=== PATIENT | female | born 1945 | race Caucasian/White ===

== ENCOUNTER 2017-06-05 17:23 | Inpatient (IN) | payer MEDICARE, OTHER ==
[~2017-06-05] VITALS: Ht 134.6 cm; Wt 45.0 kg
[~2017-06-05 17:23] MED LIST: ACET325T11 PO; CIPR500T4 PO; ESCI10TA PO; FLON0.053; FLUTI220I INH; HYDR-2951 PO; HYDR7.5T32 PO; METR-1 PO; MIRT30TA PO; MONT10TA2 PO; SUCR1TAB PO; VITA-13 PO; XANA0.5T PO
[2017-06-05 17:33] VITALS: BP 159/83; PULSE 84; RESP 19; TEMP 97.4; O2SAT 100
[2017-06-05] MEDS ORDERED: SODIUM CHLORIDE 0.9% FLUSH 10 ML FLUSH IVF PRN (18:00)
--- NOTE | 2017-06-05 18:06 | PD ---
HPI Chief Complaint: Diabetic Time Seen by Provider: 17:27 Travel History International Travel<30 days: No Contact w/Intl Traveler<30days: No Traveled to known affect area: No History of Present Illness HPI 71-year-old female presents to the emergency department Via EMS for evaluation of hypoglycemia. The patient resides occult [facility]. She was at the orthopedist office for routine appointment. In the waiting room, she went unresponsive. When EMS arrived, she was unresponsive with GCS of 3. Her blood sugar was 37. They were able to put some oral glucose on her mucosa and she became responsive. She then took the rest of the glucose orally. She is alert upon her arrival here. Patient states she has decreased appetite today and did not eat much breakfast or lunch after her insulin. She denies any headache. No chest pain. She denies abdominal pain. No vomiting. She states she is now short of breath due to her emphysema. No exacerbating alleviating factors. Moderate severity. PFSH Past Medical History Anxiety: Yes Depression: Yes Heart Rhythm Problems: Yes (ST WITH OCCAS. PAC's) Cancer: No Cardiovascular Problems: Yes (HX OF AORTIC INSUFFICIENCY.) COPD: Yes Developmental Delay: Yes (MR) Diabetes: Yes Diminished Hearing: No Endocrine: Yes GERD: Yes Genitourinary: No Immune Disorder: No Musculoskeletal: No Neurologic: No Psychiatric: Yes (schizophrenia) Reproductive: Yes (tubligation) Respiratory: Yes Schizophrenia: Yes Ulcer: Yes ?: Not Menopausal: Yes Tubal Ligation: Yes Past Surgical History Gynecologic Surgery: Yes (tubligation) Social History Alcohol Use: No Tobacco Use: No Substance Use: No Allergies-Medications (Allergen,Severity, Reaction): Coded Allergies: penicillin G (Unverified Allergy, Severe, 10/02/16) MRI PRECAUTION (Verified Adverse Reaction, Severe, SPINAL STIMULATOR VV 10/12/10, 07/03/11) Reported Meds & Prescriptions Reported Meds & Active Scripts Active Reported Remeron (Mirtazapine) 45 Mg Tab 45 Mg PO HS Tylenol (Acetaminophen) 325 Mg Tab 650 Mg PO Q4H PRN Colace (Docusate Sodium) 100 Mg Capsule 100 Mg PO Q12HR Lovenox Inj (Enoxaparin Sodium) 40 Mg/0.4 Ml Syr 40 Mg SQ DAILY Omeprazole 40 Mg Cap 40 Mg PO BID Breo Ellipta Inh (Fluticasone/Vilanterol) 200-25 Mcg/Act Inh 1 Puff INH DAILY Use daily at the same time. Sodium Polystyrene Sulfonate Liq (Sodium Polystyrene Sulfonate) 15 Gm/60 Ml Susp 15 Gm PO SATURDAY Brimonidine Opth Drops (Brimonidine Tartrate) 0.2% Soln 1 Drop EACH EYE BID Levemir Flextouch Pen Inj (Insulin Detemir) 300 unit/3 ML Pen 20 Units SQ DAILY Seroquel (Quetiapine Fumarate) 200 Mg Tab 200 Mg PO HS Xanax (Alprazolam) 1 Mg Tab 1 Mg PO HS Ferrous Sulfate 325 Mg (65 Mg Iron) Tablet 325 Mg PO DAILY Review of Systems Except as stated in HPI: all other systems reviewed are Neg Physical Exam Narrative GENERAL: Well-nourished, well-developed elderly female patient, afebrile. Patient alert and oriented to person, place, month, but not year or president. SKIN: Focused skin assessment warm/dry. HEAD: Normocephalic. EYES: No scleral icterus. No injection or drainage. NECK: Supple, trachea midline. No JVD or lymphadenopathy. CARDIOVASCULAR: Regular rate and rhythm without murmurs, gallops, or rubs. RESPIRATORY: Breath sounds equal bilaterally. No accessory muscle use. Lungs sounds with the inspiratory and expiratory wheezes throughout. GASTROINTESTINAL: Abdomen soft, non-tender, nondistended. MUSCULOSKELETAL: No cyanosis, or edema. BACK: Nontender without obvious deformity. No CVA tenderness. Data Data Last Documented VS Vital Signs Date Time Temp Pulse Resp B/P (MAP) Pulse Ox O2 Delivery O2 Flow Rate FiO2 06/05/17 20:10 94 18 146/72 (96) 99 Room Air 06/05/17 17:33 97.4 Orders Orders Electrocardiogram (06/05/17 17:47) Complete Blood Count With Diff (06/05/17 17:47) Comprehensive Metabolic Panel (06/05/17 17:47) Magnesium (Mg) (06/05/17 17:47) Ckmb (Isoenzyme) Profile (06/05/17 17:47) Troponin I (06/05/17 17:47) Act Partial Throm Time (Ptt) (06/05/17 17:47) Prothrombin Time / Inr (Pt) (06/05/17 17:47) Urinalysis - C+S If Indicated (06/05/17 17:47) Chest, Single Ap (06/05/17 17:47) Ecg Monitoring (06/05/17 17:47) Iv Access Insert/Monitor (06/05/17 17:47) Oximetry (06/05/17 17:47) Sodium Chloride 0.9% Flush (Ns Flush) (06/05/17 18:00) Diet Heart Healthy (06/05/17 Dinner) Albuterol-Ipratropium Neb (Duoneb Neb) (06/05/17 18:00) Vascular Access Team Consult/P PRN (06/05/17 18:02) Vascular Poc Ultrasound (06/05/17 ) Dextrose 50% In Jonny (Syr) Inj (D50w (Syr (06/05/17 18:15) Blood Glucose (06/05/17 19:06) B-Type Natriuretic Peptide (06/05/17 19:13) Cath For Specimen (06/05/17 20:47) Urine Culture (06/05/17 21:10) Admit Order (Ed Use Only) (06/05/17 22:21) Labs Laboratory Tests Test 06/05/17 18:00 06/05/17 19:15 06/05/17 20:00 06/05/17 21:10 White Blood Count 10.4 TH/MM3 Red Blood Count 4.80 MIL/MM3 Hemoglobin 13.2 GM/DL Hematocrit 40.9 % Mean Corpuscular Volume 85.3 FL Mean Corpuscular Hemoglobin 27.5 PG Mean Corpuscular Hemoglobin Concent 32.3 % Red Cell Distribution Width 16.7 % Platelet Count 312 TH/MM3 Mean Platelet Volume 8.4 FL Neutrophils (%) (Auto) 79.5 % Lymphocytes (%) (Auto) 11.6 % Monocytes (%) (Auto) 5.8 % Eosinophils (%) (Auto) 2.7 % Basophils (%) (Auto) 0.4 % Neutrophils # (Auto) 8.3 TH/MM3 Lymphocytes # (Auto) 1.2 TH/MM3 Monocytes # (Auto) 0.6 TH/MM3 Eosinophils # (Auto) 0.3 TH/MM3 Basophils # (Auto) 0.0 TH/MM3 CBC Comment DIFF FINAL Differential Comment Blood Urea Nitrogen 19 MG/DL Creatinine 0.83 MG/DL Random Glucose 27 MG/DL Total Protein 8.5 GM/DL Albumin 3.3 GM/DL Calcium Level 9.0 MG/DL Magnesium Level 1.7 MG/DL Alkaline Phosphatase 175 U/L Aspartate Amino Transf (AST/SGOT) 22 U/L Alanine Aminotransferase (ALT/SGPT) 14 U/L Total Bilirubin 0.5 MG/DL Sodium Level 140 MEQ/L Potassium Level 3.5 MEQ/L Chloride Level 106 MEQ/L Carbon Dioxide Level 23.8 MEQ/L Anion Gap 10 MEQ/L Estimat Glomerular Filtration Rate 68 ML/MIN Total Creatine Kinase 48 U/L Troponin I 0.33 NG/ML Prothrombin Time 10.5 SEC Prothromb Time International Ratio 1.0 RATIO Activated Partial Thromboplast Time 29.2 SEC Urine Color YELLOW Urine Turbidity CLEAR Urine pH 6.5 Urine Specific [place] 1.018 Urine Protein TRACE mg/dL Urine Glucose (UA) 150 mg/dL Urine Ketones NEG mg/dL Urine Occult Blood NEG Urine Nitrite NEG Urine Bilirubin NEG Urine Urobilinogen 2.0 MG/DL Urine Leukocyte Esterase NEG Urine RBC 1 /hpf Urine WBC 3 /hpf Urine Squamous Epithelial Cells 11 /hpf Urine Bacteria MANY /hpf Microscopic Urinalysis Comment CULTURE INDICATED MDM Medical Decision Making Medical Screen Exam Complete: Yes Emergency Medical Condition: Yes Medical Record Reviewed: Yes Differential Diagnosis Hypoglycemia versus electrolyte abnormality versus UTI Narrative Course 71-year-old female presents to the emergency department for unresponsiveness, hypoglycemia that occurred today. Blood glucose on arrival to the ED is 26. Patient is given orange juice and food. She is given 1 amp of D50. EKG, CBC, CMP, magnesium, CK, troponin, BNP, PTT, PT/INR, UA, chest x-ray are ordered and pending. EKG shows sinus rhythm, heart rate 90, no acute ST changes. CBC shows no acute abnormality. CMP shows hypoglycemia 27. Magnesium is 1.7. CK is 48. Troponin is 0.33. BNP is pending. Cardiac showed no acute abnormality. Blood glucose at 1836 is 203. Blood glucose at 2043 is 176. Patient is admitted for altered mental status, hypoglycemia, elevated troponin. Dr. Velazquez accepted admission. Diagnosis Primary Impression: Altered mental status Qualified Codes: R41.82 - Altered mental status, unspecified Additional Impressions: Hypoglycemia Elevated troponin Admitting Information Admitting Physician Requests: Admit Khalida Morocho Jun 05, 2017 18:06
[2017-06-05] MEDS ORDERED: DEXTROSE 50% IN WATER 50 ML SYRINGE IV PUSH ONE (18:15)
[2017-06-05 18:39] VITALS: BP 160/63; PULSE 98; RESP 19; O2SAT 99
--- NOTE | 2017-06-05 18:41 | RADRPT ---
EXAM DATE/TIME: 06/05/2017 18:16 [place] COMPARISON: No previous studies available for comparison. INDICATIONS : Shortness of breath. MEDICAL HISTORY : Unobtainable. SURGICAL HISTORY : Unobtainable. ENCOUNTER: Initial ACUITY: 2 days PAIN SCORE: Non-responsive. LOCATION: chest FINDINGS: Heart size is borderline. There is mild central vascular congestion. No focal infiltrate or significa nt effusion. CONCLUSION: Borderline heart size mild vascular congestion Garrett Joyce MD on June 05, 2017 at 18:38 Board Certified Radiologist. This report was verified electronically.
[2017-06-05 18:43] LABS: ALBUMIN 3.3 GM/DL (3.4-5.0); ALT (GPT) 14 U/L (10-53); AST (GOT) 22 U/L (15-37); BICARBONATE 23.8 MEQ/L (21.0-32.0); BLOOD UREA NITROGEN 19 MG/DL (7-18); CHLORIDE 106 MEQ/L (98-107); CREATININE 0.83 MG/DL (0.50-1.00); GLOMERULAR FILTRATION RATE 68 ML/MIN (>89); MAGNESIUM 1.7 MG/DL (1.5-2.5); SODIUM (NA) 140 MEQ/L (136-145)
[2017-06-05 18:47] LABS: GLUCOSE,RANDOM 27 MG/DL (74-106)
[2017-06-05] MEDS ORDERED: FERR325T18 PO (18:48)
[2017-06-05] MEDS ORDERED: BRIM0.2S4 EACH EYE (18:48)
[2017-06-05] MEDS ORDERED: FLUT1INH7 INH (18:48)
[2017-06-05] MEDS ORDERED: SERO200T PO (18:48)
[2017-06-05] MEDS ORDERED: INSU1INJ5 SQ (18:48)
[2017-06-05] MEDS ORDERED: REME45TA PO (18:48)
[2017-06-05] MEDS ORDERED: COLA100C5 PO (18:48)
[2017-06-05] MEDS ORDERED: SODI200S PO (18:48)
[2017-06-05] MEDS ORDERED: TYLE325T PO (18:48)
[2017-06-05] MEDS ORDERED: XANA1TAB2 PO (18:48)
[2017-06-05] MEDS ORDERED: OMEP40CA2 PO (18:48)
[2017-06-05] MEDS ORDERED: ENOX40P SQ (18:48)
[2017-06-05 19:01] LABS: ALKALINE PHOSPHATASE 175 U/L (45-117); TOTAL BILIRUBIN ADULT 0.5 MG/DL (0.2-1.0); TOTAL PROTEIN 8.5 GM/DL (6.4-8.2); TROPONIN I 0.33 NG/ML (0.02-0.05)
[2017-06-05] MEDS: RESP: ALBUTEROL 2.5 MG/IPRATROPIUM 0.5 MG NEB (SCH) INH (19:16)
[2017-06-05 19:40] LABS: AUTOMATED NEUTROPHIL # 8.3 TH/MM3 (1.8-7.7); BASOPHIL % 0.4 % (0.0-2.0); EOSINOPHIL # 0.3 TH/MM3 (0-0.4); EOSINOPHIL % 2.7 % (0.0-4.0); HEMATOCRIT 40.9 % (35.0-46.0); HEMOGLOBIN 13.2 GM/DL (11.6-15.3); LYMPH % 11.6 % (9.0-44.0); LYMPHOCYTE # 1.2 TH/MM3 (1.0-4.8); MEAN CELL VOLUME 85.3 FL (80.0-100.0); MEAN CORPUSCULAR HEMOGLOBIN 27.5 PG (27.0-34.0); MEAN CORPUSCULAR HGB CONC 32.3 % (32.0-36.0); MEAN PLATELET VOLUME 8.4 FL (7.0-11.0); MONO % 5.8 % (0.0-8.0); MONOCYTE # 0.6 TH/MM3 (0-0.9); NEUT % 79.5 % (16.0-70.0); PLATELET COUNT 312 TH/MM3 (150-450); RED CELL DISTRIBUTION WIDTH 16.7 % (11.6-17.2); WHITE BLOOD COUNT 10.4 TH/MM3 (4.0-11.0)
[2017-06-05 20:10] VITALS: BP 146/72; PULSE 94; RESP 18; O2SAT 99
[2017-06-05 20:27] LABS: PROTHROMBIN TIME - PATIENT 10.5 SEC (9.8-11.6)
[2017-06-05 21:23] LABS: BACTERIA, URINE MANY /hpf; BILIRUBIN, URINE NEG (NEG); BLOOD, URINE NEG (NEG); GLUCOSE,URINE 150 mg/dL (NEG); KETONE, URINE NEG (NEG); NITRITE,URINE NEG (NEG); PH, URINE 6.5 (5.0-8.5); SQUAMOUS EPITHELIAL CELL URINE 11 /hpf (0-5); URINE COLOR YELLOW (YELLW/STRAW); URINE LEUKOCYTE ESTERASE NEG (NEG)
[2017-06-06] VITALS (20 sets, daily range): BP systolic 102–179; BP diastolic 57–78; PULSE 67–107; RESP 16–19; TEMP 97.8–98.5; O2SAT 96–99
[2017-06-06] MEDS ORDERED: D5-1/2 NS + KCL 20 MEQ INJ 1,000 ML IV SCH (00:16)
[2017-06-06] MEDS ORDERED: RESP: ALBUTEROL 2.5 MG/IPRATROPIUM 0.5 MG NEB (PRN) NEB (00:30)
[2017-06-06] MEDS ORDERED: DEXTROSE 50% IN WATER 50 ML VIAL(D50) IV PUSH PRN (00:30)
[2017-06-06] MEDS ORDERED: HEPARIN SODIUM - SQ 10,000 UNITS/ML VIAL SQ ONE (00:30)
[2017-06-06] MEDS ORDERED: GLUCAGON 1 MG/ML VIAL IM PRN (00:30)
[2017-06-06] MEDS ORDERED: SODIUM CHLORIDE 0.9% FLUSH 10 ML FLUSH IV FLUSH PRN ×2 (00:30→16:15)
[2017-06-06] MEDS ORDERED: MORPHINE SULFATE 4 MG/ML INJ IV PUSH PRN (00:30)
[2017-06-06] MEDS ORDERED: NITROGLYCERIN 0.4 MG SL 25 TABS/BTL SL PRN (00:30)
[2017-06-06 01:04] LABS: TROPONIN I 0.28 NG/ML (0.02-0.05)
[2017-06-06 05:51] LABS: TROPONIN I 0.28 NG/ML (0.02-0.05)
[2017-06-06] MEDS ORDERED: HEPARIN SODIUM - SQ 10,000 UNITS/ML VIAL SQ SCH (08:00)
[2017-06-06] MEDS ORDERED: ASPIRIN 325 MG TAB PO SCH (09:00)
[2017-06-06] MEDS ORDERED: FUROSEMIDE 20 MG/2 ML VIAL IV PUSH SCH (09:00)
[2017-06-06] MEDS: FLUTICASONE 200 MCG/VILANTEROL 25 MCG INHALER INH SCH (09:18)
[2017-06-06] MEDS: BRIMONIDINE TARTRATE 0.2% OPHT SOLN 5 ML BTL EACH EYE SCH ×2 (09:18→21:41)
[2017-06-06] MEDS: PANTOPRAZOLE SOD 40 MG DELAYED RELEASE TAB PO SCH ×2 (09:18→21:36)
[2017-06-06] MEDS: FERROUS SULFATE 325 MG (65 MG ELEMENTAL IRON) TAB PO SCH (09:20)
[2017-06-06] MEDS: SODIUM CHLORIDE 0.9% FLUSH 10 ML FLUSH IV FLUSH SCH ×3 (09:21→21:45)
--- NOTE | 2017-06-06 13:30 | HHI.HP ---
[facility] Armani Escobar MD Admission Diagnosis AMS, elevated troponin, hypoglycemia Diagnoses: Chief Complaint: Altered mental status, hypoglycemia Travel History International Travel<30 Days: No Contact w/Intl Traveler <30 Da: No Traveled to Known Affected Are: No History of Present Illness 71 Y/O female with medical history significant for MR, diabetes, emphysema with hip fracture 2 weeks ago became unresponsive in the Orthopedics office and was found to be hypoglycemic. Mental status improved after after she was given glucose. Workup in the ED revealed elevated troponin. On my evaluation, the patient is awake and alert. She states she has not been eating due to poor appetite. She does take insulin. She did complain of SOB to the ED physician but now states her breathing is at baseline. Review of Systems Except as stated in HPI: all other systems reviewed are Neg ROS Limitations: Poor Historian Constitutional: COMPLAINS OF: Change in appetite, DENIES: Fever, Chills Respiratory: COMPLAINS OF: Shortness of breath Cardiovascular: DENIES: Chest pain Musculoskeletal: COMPLAINS OF: Joint pain Except as stated in HPI: all other systems reviewed are Neg Past Family Social History Past Medical History MR, diabetes, emphysema with hip fracture 2 weeks ago COPD, Depression & Anxiety Past Surgical History Left hip fracture repair. Knee surgery Reported Medications Reported Meds & Active Scripts Active Reported Remeron (Mirtazapine) 45 Mg Tab 45 Mg PO HS Tylenol (Acetaminophen) 325 Mg Tab 650 Mg PO Q4H PRN Colace (Docusate Sodium) 100 Mg Capsule 100 Mg PO Q12HR Lovenox Inj (Enoxaparin Sodium) 40 Mg/0.4 Ml Syr 40 Mg SQ DAILY Omeprazole 40 Mg Cap 40 Mg PO BID Breo Ellipta Inh (Fluticasone/Vilanterol) 200-25 Mcg/Act Inh 1 Puff INH DAILY Use daily at the same time. Sodium Polystyrene Sulfonate Liq (Sodium Polystyrene Sulfonate) 15 Gm/60 Ml Susp 15 Gm PO SATURDAY Brimonidine Opth Drops (Brimonidine Tartrate) 0.2% Soln 1 Drop EACH EYE BID Levemir Flextouch Pen Inj (Insulin Detemir) 300 unit/3 ML Pen 20 Units SQ DAILY Seroquel (Quetiapine Fumarate) 200 Mg Tab 200 Mg PO HS Xanax (Alprazolam) 1 Mg Tab 1 Mg PO HS Ferrous Sulfate 325 Mg (65 Mg Iron) Tablet 325 Mg PO DAILY Allergies: Coded Allergies: penicillin G (Unverified Allergy, Severe, 10/02/16) MRI PRECAUTION (Verified Adverse Reaction, Severe, SPINAL STIMULATOR VV 10/12/10, 07/03/11) Family History Patient could not tell me. Social History No tobacco, alcohol Physical Exam Vital Signs Vital Signs Date Time Temp Pulse Resp B/P (MAP) Pulse Ox O2 Delivery O2 Flow Rate FiO2 06/06/17 11:30 97.9 69 16 102/67 (79) 98 Room Air 06/06/17 09:30 97.9 89 17 152/76 (101) 98 Room Air 06/06/17 09:24 17 06/06/17 07:30 98.1 88 16 150/72 (98) 99 Room Air 06/06/17 07:30 78 17 99 Room Air 06/06/17 06:00 74 16 146/75 (98) 98 Room Air 06/06/17 02:00 98.4 79 16 148/64 (92) 98 Room Air 06/06/17 00:33 99 06/06/17 00:00 84 16 133/58 (83) 99 Room Air 06/05/17 20:10 94 18 146/72 (96) 99 Room Air 06/05/17 18:39 98 19 160/63 (95) 99 Room Air 06/05/17 17:45 Room Air 06/05/17 17:33 97.4 84 19 159/83 (108) 100 Physical Exam GENERAL: Patient appears older than stated age, frail. HEAD: Atraumatic. Normocephalic. No temporal or scalp tenderness. EYES: Pupils equal round and reactive. Extraocular motions intact. No scleral icterus. No injection or drainage. ENT: Nose without bleeding, purulent drainage or septal hematoma. Throat without erythema, tonsillar hypertrophy or exudate. Uvula midline. Airway patent. NECK: Trachea midline. No JVD or lymphadenopathy. Supple, nontender, no meningeal signs. CARDIOVASCULAR: Regular rate and rhythm without murmurs, gallops, or rubs. RESPIRATORY: Diminished breath sounds at the bases, otherwise clear to auscultation. GASTROINTESTINAL: Abdomen soft, non-tender, nondistended. No hepato-splenomegaly , or palpable masses. No guarding. MUSCULOSKELETAL: Extremities without clubbing, cyanosis, or edema. No joint tenderness, effusion, or edema noted. No calf tenderness. Negative Homans sign bilaterally. NEUROLOGICAL: Awake and alert. Cranial nerves II through XII intact. Motor and sensory grossly within normal limits. Five out of 5 muscle strength in all muscle groups. Normal speech. Laboratory Laboratory Tests Test 06/05/17 18:00 06/05/17 19:15 06/05/17 20:00 06/05/17 21:10 White Blood Count 10.4 Red Blood Count 4.80 Hemoglobin 13.2 Hematocrit 40.9 Mean Corpuscular Volume 85.3 Mean Corpuscular Hemoglobin 27.5 Mean Corpuscular Hemoglobin Concent 32.3 Red Cell Distribution Width 16.7 Platelet Count 312 Mean Platelet Volume 8.4 Neutrophils (%) (Auto) 79.5 Lymphocytes (%) (Auto) 11.6 Monocytes (%) (Auto) 5.8 Eosinophils (%) (Auto) 2.7 Basophils (%) (Auto) 0.4 Neutrophils # (Auto) 8.3 Lymphocytes # (Auto) 1.2 Monocytes # (Auto) 0.6 Eosinophils # (Auto) 0.3 Basophils # (Auto) 0.0 CBC Comment DIFF FINAL Differential Comment Blood Urea Nitrogen 19 Creatinine 0.83 Random Glucose 27 Total Protein 8.5 Albumin 3.3 Calcium Level 9.0 Magnesium Level 1.7 Alkaline Phosphatase 175 Aspartate Amino Transf (AST/SGOT) 22 Alanine Aminotransferase (ALT/SGPT) 14 Total Bilirubin 0.5 Sodium Level 140 Potassium Level 3.5 Chloride Level 106 Carbon Dioxide Level 23.8 Anion Gap 10 Estimat Glomerular Filtration Rate 68 Total Creatine Kinase 48 Troponin I 0.33 Prothrombin Time 10.5 Prothromb Time International Ratio 1.0 Activated Partial Thromboplast Time 29.2 B-Type Natriuretic Peptide 70 Urine Color YELLOW Urine Turbidity CLEAR Urine pH 6.5 Urine Specific [place] 1.018 Urine Protein TRACE Urine Glucose (UA) 150 Urine Ketones NEG Urine Occult Blood NEG Urine Nitrite NEG Urine Bilirubin NEG Urine Urobilinogen 2.0 Urine Leukocyte Esterase NEG Urine RBC 1 Urine WBC 3 Urine Squamous Epithelial Cells 11 Urine Bacteria MANY Microscopic Urinalysis Comment CULTURE INDICATED Test 06/06/17 00:25 06/06/17 04:18 Total Creatine Kinase 40 36 Troponin I 0.28 0.28 Date/Time Source Procedure Growth Status 06/05/17 21:10 Urine Random Urine Urine Culture Pending Received Result Diagram: 06/05/17 1800 06/05/17 1800 Imaging Last Impressions Chest X-Ray 06/05/17 1967 Signed Impressions: Service Date/Time: Monday, June 05, 2017 18:16 - CONCLUSION: Borderline heart size mild vascular congestion MD Amina Noble VTE Risk Assessment Amina VTE Risk Assessment: Mod/High Risk (score >= 2) Caprini Risk Assessment Model Point Value = 1 Point Value = 2 Point Value = 3 Point Value = 5 Age 41-60 Minor surgery BMI > 25 kg/m2 Swollen legs Varicose veins or History of unexplained or recurrent spontaneous Oral contraceptives or hormone replacement Sepsis (< 1 month) Serious lung disease, including pneumonia (< 1 month) Abnormal pulmonary function Acute myocardial infarction Congestive heart failure (< 1 month) History of inflammatory bowel disease Medical patient at bed rest Age 61-74 Arthroscopic surgery Major open surgery (> 45 min) Laparoscopic surgery (> 45 min) Malignancy Confined to bed (> 72 hours) Immobilizing plaster cast Central venous access Age >= 75 History of VTE Family history of VTE Factor V Leiden Prothrombin [id number] Lupus anticoagulant Anticardiolipin antibodies Elevated serum homocysteine Heparin-induced thrombocytopenia Other congenital or acquired thrombophilia Stroke (< 1 month) Elective arthroplasty Hip, pelvis, or leg fracture Acute spinal cord injury (< 1 month) Prophylaxis Regimen Total Risk Factor Score Risk Level Prophylaxis Regimen 0-1 Low Early ambulation 2 Moderate Order ONE of the following: *Sequential Compression Device (SCD) *Heparin 5000 units SQ BID 3-4 Higher Order ONE of the following medications: *Heparin 5000 units SQ TID *Enoxaparin/Lovenox 40 mg SQ daily (WT < 150 kg, CrCl > 30 mL/min) *Enoxaparin/Lovenox 30 mg SQ daily (WT < 150 kg, CrCl > 10-29 mL/min) *Enoxaparin/Lovenox 30 mg SQ BID (WT < 150 kg, CrCl > 30 mL/min) AND/OR *Sequential Compression Device (SCD) 5 or more Highest Order ONE of the following medications: *Heparin 5000 units SQ TID (Preferred with Epidurals) *Enoxaparin/Lovenox 40 mg SQ daily (WT < 150 kg, CrCl > 30 mL/min) *Enoxaparin/Lovenox 30 mg SQ daily (WT < 150 kg, CrCl > 10-29 mL/min) *Enoxaparin/Lovenox 30 mg SQ BID (WT < 150 kg, CrCl > 30 mL/min) AND *Sequential Compression Device (SCD) Assessment and Plan Problem List: (1) Altered mental status ICD Code: R41.82 - Altered mental status, unspecified Status: Acute Plan: Secondary to hypoglycemia. Patient's mental status is at baseline. Continue to monitor. Correct hypoglycemia. (2) Elevated troponin ICD Code: R74.8 - Abnormal levels of other serum enzymes Status: Acute Plan: No documented cardiac history. She denies chest pain. She did complain of shortness of breath which has resolved Consult cardiology for elevated troponin. (3) Hypoglycemia ICD Code: E16.2 - Hypoglycemia, unspecified Status: Acute Plan: Secondary to inadequate p.o. intake after taking insulin. Hold Levemir. Encourage patient to eat. Diabetic diet. (4) Status post hip surgery ICD Code: Z98.890 - Other specified postprocedural states Plan: Per patient she had surgery two weeks ago at another hospital. Physical therapy to evaluate Physician Certification 2 Midnight Certification Type: Admission for Inpatient Services Order for Inpatient Services The services are ordered in accordance with Medicare regulations or non- Medicare payer requirements, as applicable. In the case of services not specified as inpatient-only, they are appropriately provided as inpatient services in accordance with the 2-midnight benchmark. Estimated LOS (days): 3 days is the estimated time the patient will need to remain in the hospital, assuming treatment plan goals are met and no additional complications. Post-Hospital Plan: SNF Problem Qualifiers (1) Altered mental status: Qualified Codes: R41.82 - Altered mental status, unspecified Eder Harvey MD Jun 06, 2017 13:30
[2017-06-06] MEDS ORDERED: MIDAZOLAM HCL 2 MG/2 ML VIAL ONE ×2 (14:52→15:31)
[2017-06-06] MEDS ORDERED: LIDOCAINE HCL 1% PF 30 ML VIAL ONE (14:52)
[2017-06-06] MEDS ORDERED: HEPARIN SODIUM - IV 10,000 UNITS/10 ML VIAL ONE ×2 (14:53→15:24)
[2017-06-06] MEDS ORDERED: ADENOSINE STRESS TEST INJ 90 MG/30 ML VIAL ONE (15:44)
--- NOTE | 2017-06-06 15:53 | MB ---
cc: Lan Gomez MD DATE: 06/06/2017 HISTORY OF PRESENT ILLNESS: Minerva is a 71-year-old lady with a history of diabetes, schizophrenia, currently eating lunch, complaining of mild chest pain. She has an elevated troponin. She is somewhat of a poor historian, so obtained a lot of the history from the ER report. She was reportedly brought in by EMS for evaluation of hypoglycemia. She was found to be unresponsive in her orthopedist's waiting room. GCS initially 3, blood sugar 37 responded to oral glucose, was noted to be alert in the emergency room upon arrival. Otherwise, denies any fevers, chills, cough, GI or bleeding, PND, orthopnea, syncope or dizziness. She is actually having chest pain at the bedside, however. PAST MEDICAL HISTORY: Includes anxiety, depression, sinus tachycardia with occasional PACs, aortic insufficiency, COPD, history of mental retardation, endocrine, GERD, schizophrenia. SOCIAL HISTORY: Denies tobacco or alcohol use. ALLERGIES: PENICILLIN G AND MRI PRECAUTION. MEDICATIONS PRIOR TO ADMISSION: 1. Remeron. 2. Tylenol. 3. Colace. 4. Lovenox 40 subcutaneously daily. 5. Omeprazole. 6. Breo Ellipta. 7. Sodium polystyrene. 8. Sulfonate 9. Famotidine. 10. Levemir. 11. Seroquel. 12. Xanax. 13. Ferrous sulfate 325 daily. MEDICATIONS IN THE HOSPITAL: 1. Xanax 1 mg at bedtime. 2. Seroquel. 3. Remeron 4. Aspirin 325 daily. 5. Ferrous sulfate 325 daily. 6. Breo Ellipta. 7. Pantoprazole 40 b.i.d. 8. Heparin 5000 subcutaneous every 8 hours. PHYSICAL EXAMINATION: VITAL SIGNS: Blood pressure 122/65, pulse 86, respiration rate 17, temperature 97.8. Sats 98% on room air. GENERAL: She is lucid and oriented, x 2-3, in no acute distress. NECK: Supple. No JVD. No bruit. CARDIOVASCULAR: S1, S2. No murmurs, rubs, or gallops. LUNGS: Equal breath sounds bilaterally. ABDOMEN: Soft, nontender, nondistended with positive bowel sounds. EXTREMITIES: No extremity edema. X-RAY: Chest x-ray: Borderline heart size, mild vascular congestion. DATA: EKG shows normal sinus rhythm at 90 beats per minute. LABORATORY DATA: White count 10.4, hemoglobin 13.2, hematocrit 40.9, platelet count 312. Sodium 140, potassium 3.5, chloride 106, bicarbonate 23.8, BUN 19, creatinine 0.83, glucose 27, AST 22, ALT 14. Troponin 0.33, followed by 0.28 and 0.28. BNP is 70. Albumin 3.3. INR is 1.0 DIAGNOSES: 1. Rke-WI-tydnuxqat myocardial infarction. 2. 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 3. Diabetes mellitus. 4. Hypoglycemia. 5. Schizophrenia. 6. Mental retardation. 7. Hypoglycemia. DISCUSSION: The patient I do not think is mentally competent to sign consent. However, she has an emergent indication for cardiac catheterization given her ongoing chest pain with elevated troponin and multiple cardiac risk factors. Therefore, I do think left heart catheterization is emergently indicated. I have tried my best to explain the procedure to the patient. She is easily startled by discussing the risks and benefits which include , CVA, myocardial infarction, need for bypass surgery, surgery, dialysis, blood transfusion, bleeding, infection, anaphylaxis and arrhythmia. Further recommendations based on the details of her cardiac catheterization. MD PERFECTO Rodriguez/LAURENCE , 03:27 PM , 03:53 PM
--- NOTE | 2017-06-06 16:10 | CATHPROC ---
KitOrder HIS Report Study Information Study Number Admission Scheduled Start Study Start [id number] Jun 05 2017 10:23PM 06/06/2017 Jun 06 2017 3:04PM [place] [facility] Cardiac Catheterization Admit Source Facility Department Emergency department [facility] Physician and Clinical Staff Initial Lan Romero Animal Keeper Head Pavan Kelly RN Animal Keeper Head Abdi JARQUIN, Joel RecordHortencia Santiago,RT(R) (BS) Scrub Romaine Ragland RCIS(BS) Procedures Performed Procedure Location (Site) Vessel Name Coronary Angiograms LCA Left Coronary Coronary Angiograms RCA Right Coronary L Heart Cath LV Gram-hand inj. LV LV Ventricle Wire insertion Fem Art (right) Femoral Art Equipment Time Wet Finisher Description Size Mfg Part Number Used/Scraped TRANSDUCER, SARAH [id number] 15:07 MEDINA RICO * Used W/STOCKCOCK *[id number] *[id number] *[id number] *[id number] 15:07 MEDLINE INDUSTRIES PACK, CCL CUSTOM * Used *[id number] 15:07 [employer] [place] PACER PEN, SKIN DUAL W/ RULER * Used *[id number] 15:07 YEOXIN VMall MEDICAL WIRE, 3MMJ .035 180CM 180CM Used *[id number] 15:07 NAMIC MANIFOLD, 4 PORT * Used *[id number] 15:07 NYCOMED OMNIPAQUE, 350 MG, 150ML 150ML [id number] Used [id number] 15:07 BEAL MEDICAL BLANKET,WARM AIR CCL * Used *[id number] 15:07 TERUMO MEDICAL SHEATH, FR4 TERUMO (10CM) FR 4 Used *[id number] 15:41 TERUMO MEDICAL SHEATH, FR6 TERUMO (10CM) FR 6 Used *[id number] 15:40 [place] PRIME WIRE, VERRATA 185CM 185CM [id number] *[id number] Used Equipment Model, Serial, Lot Number and Expiration Data Description Model Number Serial Number Lot Number Expiration Date PRIME WIRE, VERRATA 185CM 7128 [id number] 05-18-2020 History: Current Medications Medication Dosage/Unit Route Frequency Last Date/Time Taken ASA History: Allergies Allergy Reaction penicillin G MRI PRECAUTION SPINAL STIMULATOR VV 10/12/10 History: Risk Factors Family History of Hypertension Dyslipidemia Previous NV Previous Heart Failure Premature CAD Yes No No No No Prior Valve Prior PCI Prior CABG Surgery No No No Cerebrovascular Peripheral Artery Chronic Lung On Dialysis Diabetes Diabetes Therapy Disease Disease Disease No No No Yes Yes Insulin History: Symptoms/Diagnosis Selection Items Chest pain History: Stress Tests Stress or Imaging Studies Performed No History: Other Current Smoker Method Quit Packs a Day Years Used Pack Years No Cigarettes 15 Years Ago 2 20 40 Labs Hgb (g/dl) Hct (%) WBC (l/cumm) Platelets (thousands) 11.60-17.00 35.00-51.00 4.00-11.00 150.00-450.00 13.2 40.9 10.4 312 Glucose (mg/dl) BUN (mg/dl) Creatinine (mg/dl) BUN:Creatinine (1:x) 74.00-106.00 7.00-18.00 0.50-1.30 10.00-20.00 135 19 0.8 23.8 Na (meq/l) K (meq/l) 136.00-145.00 3.50-5.10 140 3.5 INR (PTT:PT) 0.90-1.10 1 Troponin I (ng/ml) CPK (u/l) CPK-MB (ng/ML) 0.02-0.05 26.00-308.00 0.50-3.60 0.28 48 Not Drawn Medication Medication Total Dose (Bolus/Oral) Medication Total Dosage/Unit 1% XYLOCAINE 20 mL FENTANYL 37.5 mcg HEPARIN 3000 units VERSED 3 mg Medications (Bolus/Oral) Medication Time Given Dosage/Unit Administered By Reason VERSED 06/06/2017 3:21:17 PM 1 mg Joel Patton RN 1 mg VERSED given in lab by Joel Patton RN in Right Antecubital via Peripheral IV. VERSED 06/06/2017 3:28:33 PM 1 mg Joel Patotn RN 1 mg VERSED given in lab by Joel Patton RN in Right Antecubital via Peripheral IV. 1% XYLOCAINE 06/06/2017 3:31:57 PM 20 mL Lan Gomez 20 mL 1% XYLOCAINE given in lab by Lan Gomez in Right Groin via Subcutaneous. VERSED 06/06/2017 3:32:53 PM 1 mg Joel Patton RN 1 mg VERSED given in lab by Joel Patton RN in Right Antecubital via Peripheral IV. FENTANYL 06/06/2017 3:33:56 PM 12.5 mcg Joel Patton RN 12.5 mcg FENTANYL given in lab by Joel Patton RN in Right Antecubital via Peripheral IV. FENTANYL 06/06/2017 3:40:55 PM 12.5 mcg Joel Patton RN 12.5 mcg FENTANYL given in lab by Joel Patton RN in Right Antecubital via Peripheral IV. HEPARIN 06/06/2017 3:42:29 PM 3000 units Joel Patton RN 3000 units HEPARIN given in lab by Joel Patton RN in Right Antecubital via Peripheral IV. FENTANYL 06/06/2017 3:56:45 PM 12.5 mcg Joel Patton RN 12.5 mcg FENTANYL given in lab by Joel Patton RN in Right Antecubital via Peripheral IV. Medication (Drip) Medication Time Given Dosage/Unit Concentration/Unit Diluent (ml) Solutio n ADENOSINE DRIP 06/06/2017 3:51:01 PM 140 mcg/kg/min 90 mg 90 NaCl .9 140 mcg/kg/min ADENOSINE DRIP given in lab by Joel Patton RN via Peripheral IV. Pump/Drip Flow = 420 ml/hr using NaCl .9 with a concentration of 90 mg in 90 ml. ADENOSINE DRIP 06/06/2017 3:53:58 PM 0 units/hr 0 D5W STOPPED 0 units/hr ADENOSINE DRIP STOPPED given in lab by Joel Patton RN. Pump/Drip Flow = 0 ml/hr using D5W . IV Solutions 06/06/2017 3:04:44 PM 0 mL (IV) 500 NaCl .9 Patient arrived on IV Solutions in Right Antecubital via Peripheral IV. Pump/Drip Flow = 30 ml/hr usi ng NaCl .9. Initial Case Assessment Cardiovascular HR Rhythm NIBP Chest Pain 83 reg 161/94 3 Edema Present Skin color Skin None Normal Warm Dry Circulatory - Right Pulses Dorsalis Pedis Femoral 2 2 Scale (0,1,2,3,4,d) Circulatory - Left Pulses Dorsalis Pedis Femoral 2 2 Scale (0,1,2,3,4,d) Circulatory - Lower Extremities Color Lower Right Color Lower Left Normal Normal Neurological State Oriented to time-place- Alert Moves all extremities person Respiration - General Respiration Rate SpO2 (%) (B/min) 20 97 Chronological Log Time Study Chronological Log 14:56:15 Patient arrived via Bed. 14:56:23 Patient Name, D.O.B, / Armband Verified By R.N. Vitals capture started with the following parameters, Patient=Adult, Interval=5 min, Initial Pr kwnacq=828 mmHg, 15:04:12 Deflation Rate=5 mmHg, Cuff placed on Right Ankle 15:04:27 Consent signed by the physician and the patient and verified by the [facility] staff. 15:04:31 Pre-op and post- op instructions given; patient acknowledges understanding of instructions. 15:04:32 Verbal Stimulation=2 Physical Stimulation=2 Airway=2 Respiration=2 TOTAL=8. (0=absent, 1=li mited, 2=present) 15:04:34 Presedation assessment performed by [facility] RN. 15:04:40 Patient Warmer Placed on the Table. 15:04:42 Raphael Prominences Protected 15:04:43 A # 20 IV was noted in the Antecubital (right). Grade = 0 15:04:44 Patient arrived on IV Solutions in Right Antecubital via Peripheral IV. Pump/Drip Flow = 30 ml/hr using NaCl .9. 15:04:45 History and physical on the chart or being dictated. Assessment: Initial Case, HR=83 BPM, Rhythm=reg, ZYNJ=623/94 mmhg, Chest Pain=3, Edema=None, Co ari=Normal, Skin = Warm, Dry Right Pulses: Byron Ped=2, Femoral=2 Left Pulses: Byron Ped=2, Femoral=2 15:04:46 Lower Right Extremities: Color=Normal Lower Left Extremities: Color=Normal Neurological: State=Alert, Ox3, DIEZ Respiration: Resp=20 B/min, SpO2=97 % 15:04:59 Skin Breakdown steri strips over incision site on left hip. 15:06:10 HR=93 bpm, DEKW=023/94 mmhg, SpO2=96.0 %, Resp=27 B/min, Pain=3, Shannon=10, Marshall=2 15:10:32 HR=84 bpm, UDNB=944/87 mmhg, SpO2=96.0 %, Resp=17 B/min, Pain=3, Shannon=10, Marshall=2 15:13:22 Bilateral groins prepped with 2% chlorhexidine, and draped after a 3 minute waiting time. 15:15:02 HR=91 bpm, MZWM=881/84 mmhg, SpO2=91.0 %, Resp=18 B/min, Pain=3, Shannon=10, Marshall=2 15:15:54 Reference ECG taken 15:16:20 MD paged 15:16:35 MD responded 15:18:28 Pressure channel 1 zeroed. 15:18:48 MD arrived 15:19:59 HR=82 bpm, BQBD=720/96 mmhg, SpO2=96.0 %, Resp=21 B/min, Pain=3, Shannon=10, Marshall=2 15:21:17 1 mg VERSED given in lab by Joel Patton RN in Right Antecubital via Peripheral IV. 15:24:58 HR=93 bpm, RJIQ=815/79 mmhg, SpO2=93.0 %, Resp=24 B/min, Pain=3, Shannon=10, Marshall=2 15:28:33 1 mg VERSED given in lab by Joel Patton RN in Right Antecubital via Peripheral IV. Time Out. Correct patient, correct procedure, correct physician, power injector not loaded with contrast with surgical 15:29:05 team present. Time Out Concurred by MD and individual staff in procedure. 15:29:11 Case Start 15:29:57 HR=91 bpm, JXQC=890/73 mmhg, SpO2=93.0 %, Resp=20 B/min, Pain=3, Shannon=10, Marshall=2 15:31:57 20 mL 1% XYLOCAINE given in lab by Lan Gomez in Right Groin via Subcutaneous. 15:32:53 1 mg VERSED given in lab by Joel Patton RN in Right Antecubital via Peripheral IV. 15:33:24 Access site was Right Femoral Artery. 15:33:31 A SHEATH, FR4 TERUMO (10CM) FR 4 was advanced into the Fem Art (right) using the Percutaneo us technique. 15:33:56 12.5 mcg FENTANYL given in lab by Joel Patton RN in Right Antecubital via Peripheral IV. A JR 4.0 INFINITI CATHETER FR 4 was advanced over a wire. OMNIPAQUE, 350 MG, 150ML 150ML was us ed for 15:34:02 injections. Recorded Pressure: LV, HR=90, Condition=Condition 1 15:34:48 (Left Ventricle) LV 139/-15/11 15:34:55 The LV was manually injected with 8 cc's and visualized. OMNIPAQUE, 350 MG, 150ML 150ML use d. 15:35:00 HR=84 bpm, BNWZ=966/54 mmhg, SpO2=93.0 %, Resp=30 B/min, Pain=3, Shannon=10, Marshall=2 Recorded Pressure: LV, Ao, HR=91, Condition=Condition 1 15:35:08 (Left Ventricle) LV 118/13/13, (Aorta) Ao 130/55/94 15:35:36 The RCA was injected and visualized at various angles. OMNIPAQUE, 350 MG, 150ML 150ML used . 15:35:50 Catheter was removed A JL 4.0 INFINITI CATHETER FR 4 was advanced over a wire. OMNIPAQUE, 350 MG, 150ML 150ML was us ed for 15:35:53 injections. 15:37:13 The LCA was injected and visualized at various angles. OMNIPAQUE, 350 MG, 150ML 150ML used . 15:39:59 HR=92 bpm, BHZE=134/67 mmhg, SpO2=92.0 %, Resp=16 B/min, Pain=3, Shannon=10, Marshall=2 A SHEATH, FR6 TERUMO (10CM) FR 6 was exchanged in the Fem Art (right). This was necessary in or kapil to 15:40:33 accomodate a larger catheter. 15:40:55 12.5 mcg FENTANYL given in lab by Joel Patton RN in Right Antecubital via Peripheral IV. 15:42:29 3000 units HEPARIN given in lab by Joel Patton RN in Right Antecubital via Peripheral IV. A JR 4.0 GUIDE CATHETER FR 6 was advanced over a wire. OMNIPAQUE, 350 MG, 150ML 150ML was used for 15:43:10 injections. 15:44:56 HR=90 bpm, HDGN=251/66 mmhg, SpO2=94.0 %, Resp=27 B/min, Pain=3, Shannon=10, Marshall=2 15:45:56 A PRIME WIRE, VERRATA 185CM 185CM was inserted via Fem Art (right). 15:48:23 Flow Wire was was placed in the RCA Mid. The FFR measures 0.85 percent. The IFR measures 0. 94 Percent. 15:49:35 Activated Clotting Time Drawn 15:49:57 HR=90 bpm, OHPX=482/69 mmhg, SpO2=99 %, Resp=21 B/min, Pain=3, Shannon=10, Marshall=2 140 mcg/kg/min ADENOSINE DRIP given in lab by Joel Patton RN via Peripheral IV. Pump/Drip Flow = 420 ml/hr using 15:51:01 NaCl .9 with a concentration of 90 mg in 90 ml. 15:53:58 0 units/hr ADENOSINE DRIP STOPPED given in lab by Joel Patton RN. Pump/Drip Flow = 0 ml/hr using D5W. 15:54:12 ACT (Normal Range 90-180) = 233 15:54:42 Wire removed 15:54:49 Catheter was removed 15:54:52 Case End 15:55:03 HR=95 bpm, TQVP=719/57 mmhg, SpO2=95 %, Resp=21 B/min, Pain=3, Shannon=10, Marshall=2 15:56:41 [facility] called. Spoke to Dia. Advised a-line needed. 15:56:45 12.5 mcg FENTANYL given in lab by Joel Patton RN in Right Antecubital via Peripheral IV. 15:57:25 Catheter(s) removed without difficulty 15:58:28 In the Fem Art (right) the SHEATH, FR6 TERUMO (10CM) FR [address] by Ghulam Ragland RCIS(BS). 15:58:41 No case complications noted. 15:58:46 Bedside Report will be given. 15:58:49 A Left Heart Cath was performed. 16:00:02 HR=85 bpm, UHHT=431/77 mmhg, SpO2=94.0 %, Resp=24 B/min, Pain=3, Shannon=10, Marshall=2 16:04:42 Vitals capture stopped. 16:10:17 [facility] Study - Contrast Media Used In Study Contrast Total Opened (mL) Total Used (mL) Total Wasted (mL) Omnipaque 30 30 0 End Study - Maximum Contrast Load Max Contrast Load (mL) 312.5 End Study - Radiation Exposure Fluoro Time (minutes) 2.0 End Study - Patient Disposition Complications Transferred To Interventional Outcome No Telemetry Bed No attempt made
[2017-06-06] MEDS ORDERED: MISC INFORMATION XX ONE (16:15)
--- NOTE | 2017-06-06 16:27 | EKG ---
Date Performed: 06/05/2017 Time Performed: 18:19:21 PTAGE: 71 years EKG: Sinus rhythm When compared to previous tracing, bigeminal premature atrial Contractions have resolved. NORMAL ECG PREVIOUS TRACING : 07/03/2011 22.44 DOCTOR: Andre Alatorre Interpretating Date/Time 06/06/2017 16:25:54
--- NOTE | 2017-06-06 16:27 | EKG ---
Date Performed: 06/06/2017 Time Performed: 00:26:19 PTAGE: 71 years EKG: Sinus rhythm WITH SINUS ARRHYTHMIA Significant baseline artifact. Most likely no significant change from previous tracing. NORMAL ECG PREVIOUS TRACING : 06/05/2017 18.19 DOCTOR: Andre Alatorre Interpretating Date/Time 06/06/2017 16:26:43
--- NOTE | 2017-06-06 16:28 | EKG ---
Date Performed: 06/06/2017 Time Performed: 07:46:19 PTAGE: 71 years EKG: Sinus rhythm WITH MARKED SINUS ARRHYTHMIA Since previous tracing, no significant change noted BORDERLINE ECG PREVIOUS TRACING : 06/06/2017 00.26 DOCTOR: Andre Alatorre Interpretating Date/Time 06/06/2017 16:26:53
--- NOTE | 2017-06-06 16:40 | MA ---
cc: Lan Gomez MD DATE: 06/06/2017 PROCEDURE: 1. Left heart catheterization. 2. Left ventricular. 3. Coronary angiography. 4. FFR of the proximal mid-right coronary artery. INDICATION: Non-STEMI, [place] Cardiovascular Society class IV angina. Active chest pain at rest in the emergency room, ongoing chest pain. Coronary artery disease, diabetes mellitus and multiple cardiac risk factors. PROCEDURE: The patient was brought to the Cardiac Catheterization Laboratory, prepped and draped in the usual sterile fashion. 10 mL of 1% lidocaine was used to locally anesthetize the right common femoral. A 4-Colombian sheath placed in right common femoral artery. 4-Colombian JL4 and JR4 catheter were used to perform left and right coronary angiography and left ventriculography. FINDINGS: The LV pressure is 140/10-12. EF of 65-70%. The right coronary artery is dominant, has a long 50-60% stenosis in the proximal mid-segment, reference vessel diameter probably 4 mm in diameter. Right EZIO and PDA have no significant obstructive disease. Right PDA has a reference vessel diameter of 3 mm. The right EZIO has a reference vessel diameter of 2.5 mm. The left main coronary artery has no significant disease angiographically. The left circumflex vessel has no significant disease angiographically. First obtuse marginal vessel comes off the mid-AV groove left circumflex. It is a medium to large-sized vessel with ostial proximal bifurcation. The medial branch is a small vessel, 1.5 mm reference vessel diameter with no significant obstructive disease. The more lateral of the 2 branches is a larger vessel, probably a 3.0 reference vessel diameter with no significant obstructive disease. The remainder of the AV groove left circumflex vessel is a small 0.5 mm vessel with no obvious focal stenosis. The left anterior descending coronary artery is a non-transapical vessel, proximal reference vessel diameter probably 4 mm in diameter. There is a somewhat anomalous-appearing diagonal vessel, which actually looks like it has a medial takeoff. It may be a variant septal branch. Nevertheless, it has no significant obstructive disease. It bifurcates proximal ostial proximally. The first diagonal artery is a small 0.5 mm vessel with no significant disease angiographically. The second diagonal artery is a medium-sized vessel; no significant disease angiographically. FFR: A 6-Colombian sheath was exchanged for the 4-Colombian sheath. 60 units/kg of heparin was given with an ACT of 223. A 6-Colombian JR4 guide, 0.014 [place] pressure wire was placed into the proximal LAD pressure. The introducer was removed. The guide catheter was thoroughly flushed with 20 mL of normal saline and pressure waveforms were normalized. I then advanced the [place] 0.014 pressure wire into the distal right coronary artery. IFR was 0.96. We did a 3-minute infusion of 140 mcg/kg/minute of adenosine. FFR 0.90. The patient appeared to be sleeping during the entire adenosine infusion, did not appear to be having any symptoms. CONCLUSION: 1. Cpb-SG-mslavgmzr myocardial infarction suspected during her syncopal event. She might have been hypotensive and that is the etiology of her troponin elevation. 2. A 60% proximal mid-right coronary artery stenosis with an IFR 0.96, FFR 0.90 therefore percutaneous coronary intervention deferred. 3. Hyperdynamic left ventricular systolic function, ejection fraction 65 to 70%. RECOMMENDATIONS: 1. Recommend medical management of coronary artery disease, cardiac risk factor modification. Recommend treatment of lipids to NCEP guideline levels, which would be an LDL less than 70 as long as there are no clinical contraindications. I also recommend aspirin 81 mg daily. The patient tolerated the procedure well. MD PERFECTO Rodriguez/LAURENCE , 04:04 PM , 04:39 PM
[2017-06-06] MEDS ORDERED: ATROPINE SULFATE 1 MG/10 ML SYRINGE ONE (17:39)
[2017-06-06] MEDS ORDERED: IOHEXOL 350 MG/ML 50 ML BTL (for Cath Lab) OTHER ONE (18:13)
[2017-06-06] MEDS ORDERED: NITROGLYCERIN 2% OINT 1 GM PACKET TOPICAL PRN (19:15)
[2017-06-06] MEDS: QUEtiapine FUMARATE 200 MG TAB PO SCH (21:36)
[2017-06-06] MEDS: MIRTAZAPINE 15 MG TAB PO SCH (21:37)
[2017-06-06] MEDS: ALPRAZolam 1 MG TAB PO SCH (21:37)
[2017-06-06] MEDS: ACETAMINOPHEN 500 MG CPLT PO PRN (23:14)
[2017-06-07] VITALS (24 sets, daily range): BP systolic 118–169; BP diastolic 63–85; PULSE 60–96; RESP 16–20; TEMP 97.7–98.9; O2SAT 95–100
[2017-06-07 07:02] LABS: CALCIUM 8.7 MG/DL (8.5-10.1); CREATININE 0.93 MG/DL (0.50-1.00)
[2017-06-07 07:03] LABS: CHOLESTEROL/ HDL RATIO 2.57 RATIO; HDL CHOLESTEROL 60.1 MG/DL (40.0-60.0)
[2017-06-07 07:20] LABS: HEMOGLOBIN 9.8 GM/DL (11.6-15.3); MEAN CELL VOLUME 85.2 FL (80.0-100.0); MEAN CORPUSCULAR HEMOGLOBIN 29.8 PG (27.0-34.0); MEAN CORPUSCULAR HGB CONC 34.9 % (32.0-36.0); MEAN PLATELET VOLUME 8.3 FL (7.0-11.0); PLATELET COUNT 375 TH/MM3 (150-450); RED BLOOD COUNT 3.29 MIL/MM3 (4.00-5.30); RED CELL DISTRIBUTION WIDTH 16.4 % (11.6-17.2); WHITE BLOOD COUNT 7.8 TH/MM3 (4.0-11.0)
[2017-06-07 07:45] LABS: BANDS 2 % (0-6); BASOPHILS 2 % (0-2); LYMPHOCYTES 23 % (9-44); METAMYELOCYTES 1 % (0-1); MONOCYTES 8 % (0-8); NEUTROPHIL # MANUAL DIFF 3.7 TH/MM3 (1.8-7.7); POLYS (SEG NEUTROPHILS) 45 % (16-70)
[2017-06-07] MEDS ORDERED: ATORVASTATIN 10 MG TAB PO ONE (09:00)
[2017-06-07] MEDS ORDERED: ASPIRIN EC 81 MG TABEC PO ONE (09:00)
[2017-06-07] MEDS ORDERED: cloNIDine HCL 0.1 MG TAB PO PRN (09:00)
[2017-06-07] MEDS ORDERED: CARVEDILOL 3.125 MG TAB PO ONE (09:00)
[2017-06-07] MEDS ORDERED: RAMIPRIL 2.5 MG CAP PO ONE (09:00)
[2017-06-07] MEDS ORDERED: ASPIRIN 81 MG CHEW TAB PO SCH (09:00)
[2017-06-07] MEDS ORDERED: DEXTROSE 50% IN WATER 50 ML VIAL(D50) IV PUSH PRN (09:15)
[2017-06-07] MEDS ORDERED: GLUCAGON 1 MG/ML VIAL OTHER PRN (09:15)
[2017-06-07] MEDS: PANTOPRAZOLE SOD 40 MG DELAYED RELEASE TAB PO SCH ×2 (10:01→21:18)
[2017-06-07] MEDS: FERROUS SULFATE 325 MG (65 MG ELEMENTAL IRON) TAB PO SCH (10:01)
[2017-06-07] MEDS: SODIUM CHLORIDE 0.9% FLUSH 10 ML FLUSH IV FLUSH SCH ×2 (10:03→21:21)
[2017-06-07] MEDS: BRIMONIDINE TARTRATE 0.2% OPHT SOLN 5 ML BTL EACH EYE SCH ×2 (10:03→21:14)
[2017-06-07] MEDS: FLUTICASONE 200 MCG/VILANTEROL 25 MCG INHALER INH SCH (10:04)
[2017-06-07] MEDS: cefTRIAXone INJ 1,000 MG in SODIUM CHLORIDE 0.9% INJ 100 ML IV SCH (10:58)
[2017-06-07] MEDS: ACETAMINOPHEN 500 MG CPLT PO PRN ×2 (10:58→16:50)
[2017-06-07] MEDS: DRONABINOL 2.5 MG CAP PO SCH ×2 (11:00→16:50)
--- NOTE | 2017-06-07 13:48 | PD.CARD.PN ---
Subjective Subjective Remarks alert in nad Objective Medications Current Medications Medications (Trade) Dose Ordered Sig/Rosa Route Start Time Stop Time Status Last Admin (NS Flush) 2 ml UNSCH PRN IVF 06/05/17 18:00 06/05/17 18:35 (Nitrostat Sl) 0.4 mg Q5M PRN SL 06/06/17 00:30 (Tylenol) 500 mg Q4H PRN PO 06/06/17 00:30 06/07/17 10:58 (Morphine Inj) 2 mg Q3H PRN IV PUSH 06/06/17 00:30 06/06/17 09:19 (Duoneb Neb) 1 ampule Q4HR NEB PRN NEB 06/06/17 00:30 (Xanax) 1 mg HS PO 06/06/17 21:00 06/06/17 21:37 (Alphagan 0.2% Opth Soln) 1 drop BID EACH EYE 06/06/17 09:00 06/07/17 10:03 (Ferrous Sulfate) 325 mg DAILY PO 06/06/17 09:00 06/07/17 10:01 (Breo Ellipta 200-25 Inh) 1 puff DAILY INH 06/06/17 09:00 06/07/17 10:04 (SEROquel) 200 mg HS PO 06/06/17 21:00 06/06/17 21:36 (Remeron) 45 mg HS PO 06/06/17 21:00 06/06/17 21:37 (Protonix) 40 mg BID PO 06/06/17 09:00 06/07/17 10:01 (NS Flush) 2 ml UNSCH PRN IV FLUSH 06/06/17 16:15 (NS Flush) 2 ml BID IV FLUSH 06/06/17 21:00 06/07/17 10:03 (Nitroglycerin 2% Oint) 2 inch ONCE PRN TOPICAL 06/06/17 19:15 06/07/17 23:59 06/06/17 22:37 (Lipitor) 10 mg HS PO 06/08/17 21:00 (Coreg) 3.125 mg Q12HR PO 06/07/17 21:00 (Altace) 2.5 mg DAILY PO 06/08/17 09:00 Ceftriaxone Sodium 1000 mg/ Sodium Chloride 100 ml @ 200 mls/hr Q24H IV 06/07/17 10:00 06/07/17 10:58 (Catapres) 0.1 mg Q6H PRN PO 06/07/17 09:00 (Marinol) 2.5 mg BID@11,16 PO 06/07/17 11:00 (D50w (Vial) Inj) 50 ml UNSCH PRN IV PUSH 06/07/17 09:15 (Glucagon Inj) 1 mg UNSCH PRN OTHER 06/07/17 09:15 Vital Signs / I&O Vital Signs Date Time Temp Pulse Resp B/P (MAP) Pulse Ox O2 Delivery O2 Flow Rate FiO2 06/07/17 12:30 62 18 118/63 (81) 98 06/07/17 08:00 78 06/07/17 08:00 97.7 86 16 169/85 (113) 95 06/07/17 07:00 76 06/07/17 06:25 60 06/07/17 05:01 91 06/07/17 04:00 74 06/07/17 03:39 97.7 95 17 136/73 (94) 98 06/07/17 03:00 78 06/07/17 02:00 84 06/07/17 01:00 84 06/07/17 00:30 18 06/07/17 00:29 98 21 06/07/17 00:00 96 06/06/17 23:08 98.2 102 19 107/57 (74) 96 06/06/17 23:00 107 06/06/17 22:30 96 19 179/69 (105) 97 06/06/17 22:00 99 06/06/17 21:00 82 06/06/17 20:00 79 06/06/17 19:11 98.5 83 18 154/78 (103) 96 06/06/17 19:00 82 06/06/17 18:00 84 06/06/17 17:30 70 06/06/17 17:30 98.1 75 18 143/67 (92) 97 06/06/17 17:00 70 06/06/17 14:51 97.8 86 17 122/65 (84) 98 06/06/17 14:10 97.8 67 17 122/58 (79) 98 Room Air I/O 4/19/18 4/06/06/17 06/07/17 06/07/17 06/07/17 06:59 14:59 22:59 06:59 14:59 22:59 Intake Total 400 ml 50 ml 200 ml Output Total 1550 ml 50 ml 200 ml Balance -1150 ml 0 ml 0 ml Intake Oral 400 ml 50 ml 200 ml Output Urine Total 1550 ml 50 ml 200 ml # Voids 3 1 # Bowel Movements 1 1 Physical Exam GENERAL: SKIN: Warm and dry. HEAD: Normocephalic. EYES: No scleral icterus. No injection or drainage. NECK: Supple, trachea midline. No JVD or lymphadenopathy. CARDIOVASCULAR: Regular rate and rhythm without murmurs, gallops, or rubs. RESPIRATORY: Breath sounds equal bilaterally. No accessory muscle use. GASTROINTESTINAL: Abdomen soft, non-tender, nondistended. MUSCULOSKELETAL: No cyanosis, or edema. BACK: Nontender without obvious deformity. No CVA tenderness. Laboratory Laboratory Tests Test 06/06/17 14:28 06/07/17 05:13 White Blood Count 7.8 TH/MM3 Red Blood Count 3.29 MIL/MM3 Hemoglobin 9.8 GM/DL Hematocrit 28.0 % Mean Corpuscular Volume 85.2 FL Mean Corpuscular Hemoglobin 29.8 PG Mean Corpuscular Hemoglobin Concent 34.9 % Red Cell Distribution Width 16.4 % Platelet Count 375 TH/MM3 Mean Platelet Volume 8.3 FL CBC Comment AUTO DIFF Differential Total Cells Counted 100 Neutrophils % (Manual) 45 % Band Neutrophils % 2 % Lymphocytes % 23 % Monocytes % 8 % Eosinophils % 19 % Basophils % 2 % Neutrophils # (Manual) 3.7 TH/MM3 Metamyelocytes 1 % Differential Comment FINAL DIFF MANUAL Platelet Estimate NORMAL Platelet Morphology Comment CLUMPED Blood Urea Nitrogen 18 MG/DL Creatinine 0.93 MG/DL Random Glucose 94 MG/DL Calcium Level 8.7 MG/DL Sodium Level 140 MEQ/L Potassium Level 4.5 MEQ/L Chloride Level 107 MEQ/L Carbon Dioxide Level 26.0 MEQ/L Anion Gap 7 MEQ/L Estimat Glomerular Filtration Rate 60 ML/MIN Total Creatine Kinase 38 U/L Triglycerides Level 110 MG/DL Cholesterol Level 155 MG/DL LDL Cholesterol 73 MG/DL HDL Cholesterol 60.1 MG/DL Cholesterol/HDL Ratio 2.57 RATIO Assessment and Plan Problem List: (1) CAD (coronary artery disease) ICD Codes: I25.10 - Atherosclerotic heart disease of [place] coronary artery without angina pectoris (2) NSTEMI (non-ST elevated myocardial infarction) ICD Codes: I21.4 - Non-ST elevation (NSTEMI) myocardial infarction (3) Altered mental status ICD Codes: R41.82 - Altered mental status, unspecified Status: Acute (4) Elevated troponin ICD Codes: R74.8 - Abnormal levels of other serum enzymes Status: Acute Assessment and Plan 1.) CAD - assymptomatic, change aspirin 81 mg qd, start lipitor 10 mg hs, altace 2.5 mg qd, coreg 3.125 mg bid, f/u bmp Problem Qualifiers (1) Altered mental status: Qualified Codes: R41.82 - Altered mental status, unspecified Lan Gomez MD Jun 07, 2017 13:48
[2017-06-07 16:34] LABS: HEMOGLOBIN A1C 5.1 % (4.3-6.0)
[2017-06-07] MEDS ORDERED: ACETAMINOPHEN 500 MG CPLT PO PRN (19:00)
--- NOTE | 2017-06-07 19:08 | HHI.PR ---
Subjective Remarks Patient states that she just does not feel well. She states she has no appetite. She has a mild abdominal discomfort. She also complains of moderate left hip pain with history of left hip surgery recently. Objective Vitals Vital Signs Date Time Temp Pulse Resp B/P (MAP) Pulse Ox O2 Delivery O2 Flow Rate FiO2 06/07/17 16:42 66 20 142/67 (92) 100 06/07/17 14:00 76 06/07/17 13:00 74 06/07/17 12:30 62 18 118/63 (81) 98 06/07/17 12:00 68 06/07/17 11:00 76 06/07/17 10:00 92 06/07/17 09:00 72 06/07/17 08:00 78 06/07/17 08:00 97.7 86 16 169/85 (113) 95 06/07/17 07:00 76 06/07/17 06:25 60 06/07/17 05:01 91 06/07/17 04:00 74 06/07/17 03:39 97.7 95 17 136/73 (94) 98 06/07/17 03:00 78 06/07/17 02:00 84 06/07/17 01:00 84 06/07/17 00:30 18 06/07/17 00:29 98 21 06/07/17 00:00 96 06/06/17 23:08 98.2 102 19 107/57 (74) 96 06/06/17 23:00 107 06/06/17 22:30 96 19 179/69 (105) 97 06/06/17 22:00 99 06/06/17 21:00 82 06/06/17 20:00 79 06/06/17 19:11 98.5 83 18 154/78 (103) 96 I/O 06/06/17 06/06/17 06/06/17 06/07/17 06/07/17 06/07/17 07:00 15:00 23:00 07:00 15:00 23:00 Intake Total 400 ml 50 ml 200 ml Output Total 1550 ml 50 ml 200 ml Balance -1150 ml 0 ml 0 ml Intake Oral 400 ml 50 ml 200 ml Output Urine Total 1550 ml 50 ml 200 ml # Voids 3 1 # Bowel Movements 1 1 Result Diagram: 06/07/17 0513 06/07/17 0513 Objective Remarks GENERAL: Pleasant lady with mental deficits, short stature SKIN: Surgical wounds on left hip, clean dry intact, no sign of infection HEAD: Normocephalic. EYES: No scleral icterus. No injection or drainage. NECK: Supple, trachea midline. No JVD or lymphadenopathy. CARDIOVASCULAR: Regular rate and rhythm without murmurs, gallops, or rubs. RESPIRATORY: Breath sounds equal bilaterally. No accessory muscle use. GASTROINTESTINAL: Abdomen soft, non-tender, nondistended. EXTREMITIES: No cyanosis, or edema. NEUROLOGICAL: Awake, alert, and oriented x 3. Non-focal. A/P Problem List: (1) Altered mental status ICD Code: R41.82 - Altered mental status, unspecified Status: Acute (2) Elevated troponin ICD Code: R74.8 - Abnormal levels of other serum enzymes Status: Acute (3) Hypoglycemia ICD Code: E16.2 - Hypoglycemia, unspecified Status: Acute (4) Status post hip surgery ICD Code: Z98.890 - Other specified postprocedural states Assessment and Plan Altered mental status secondary to hypoglycemia Patient's mental status has returned to baseline following sugar replacement Continue to monitor for hypoglycemia Urinary tract infection Started on Rocephin Urine cultures pending Elevated troponin Cardiac risk is present, but cardiac catheterization is not emergent and patient is not able to consent due to her mental deficits Medical management at this time Cardiology recommended change aspirin 81 mg qd, start lipitor 10 mg hs, altace 2.5 mg qd, coreg 3.125 mg bid, f/u bmp Appreciate cardiology consult s/p left hip surgery Performed at another hospital 2 weeks ago Surgical wounds appear clean dry and intact Moderate pain treated with Tylenol Continue physical therapy DVT prophylaxis Lovenox Problem Qualifiers (1) Altered mental status: Qualified Codes: R41.82 - Altered mental status, unspecified Babatunde Milton MD Jun 07, 2017 19:08
[2017-06-07] MEDS: ENOXAPARIN SODIUM 40 MG/0.4 ML SYRINGE SQ SCH (21:16)
[2017-06-07] MEDS: ALPRAZolam 1 MG TAB PO SCH (21:17)
[2017-06-07] MEDS: MIRTAZAPINE 15 MG TAB PO SCH (21:17)
[2017-06-07] MEDS: QUEtiapine FUMARATE 200 MG TAB PO SCH (21:18)
[2017-06-07] MEDS: CARVEDILOL 3.125 MG TAB PO SCH (21:18)
[2017-06-08] VITALS (8 sets, daily range): BP systolic 113–184; BP diastolic 56–86; PULSE 60–91; RESP 17–18; TEMP 97.6–98.3; O2SAT 95–99
[2017-06-08] MEDS: ACETAMINOPHEN 500 MG CPLT PO PRN ×2 (01:50→12:25)
[2017-06-08 07:52] LABS: BICARBONATE 25.9 MEQ/L (21.0-32.0); CALCIUM 8.5 MG/DL (8.5-10.1); CREATININE 0.82 MG/DL (0.50-1.00)
[2017-06-08] MEDS: PANTOPRAZOLE SOD 40 MG DELAYED RELEASE TAB PO SCH ×2 (08:06→19:44)
[2017-06-08] MEDS: RAMIPRIL 2.5 MG CAP PO SCH (08:06)
[2017-06-08] MEDS: CARVEDILOL 3.125 MG TAB PO SCH ×2 (08:06→19:44)
[2017-06-08] MEDS: FERROUS SULFATE 325 MG (65 MG ELEMENTAL IRON) TAB PO SCH (08:06)
[2017-06-08] MEDS: FLUTICASONE 200 MCG/VILANTEROL 25 MCG INHALER INH SCH (08:07)
[2017-06-08] MEDS: BRIMONIDINE TARTRATE 0.2% OPHT SOLN 5 ML BTL EACH EYE SCH ×2 (08:07→19:45)
[2017-06-08] MEDS: SODIUM CHLORIDE 0.9% FLUSH 10 ML FLUSH IV FLUSH SCH ×2 (08:07→19:40)
[2017-06-08] MEDS ORDERED: ASPIRIN EC 81 MG TABEC PO SCH (09:00)
--- NOTE | 2017-06-08 09:02 | EKG ---
Date Performed: 06/07/2017 Time Performed: 05:28:30 PTAGE: 71 years EKG: Sinus rhythm with PVC(s) with PAC(s) Borderline ECG PREVIOUS TRACING : 06/06/2017 17.50 DOCTOR: Dmitri Morfin Interpretating Date/Time 06/08/2017 09:00:04
--- NOTE | 2017-06-08 09:14 | EKG ---
Date Performed: 06/06/2017 Time Performed: 17:50:06 PTAGE: 71 years EKG: Sinus rhythm Poor R wave progression - probable normal variant Borderline ECG PREVIOUS TRACING : 06/06/2017 07.46 DOCTOR: Dmitri Morfin Interpretating Date/Time 06/08/2017 09:10:27
[2017-06-08] MEDS: DRONABINOL 2.5 MG CAP PO SCH ×2 (11:00→16:53)
[2017-06-08] MEDS: cefTRIAXone INJ 1,000 MG in SODIUM CHLORIDE 0.9% INJ 100 ML IV SCH (11:19)
--- NOTE | 2017-06-08 16:13 | HHI.PR ---
Subjective Remarks Pt complains of epigastric pain and lower abdomen. She states pain is an 8/10. Had a bm today. no diarrhea, no nausea or vomiting. Pt states "I don't feel well". I just spoke w RN and now pt complaining of nausea Objective Vitals Vital Signs Date Time Temp Pulse Resp B/P (MAP) Pulse Ox O2 Delivery O2 Flow Rate FiO2 06/08/17 13:25 18 06/08/17 12:49 97.7 69 18 155/72 (99) 99 06/08/17 08:00 97.7 72 17 162/77 (105) 96 06/08/17 04:35 98.0 79 18 143/60 (87) 97 06/08/17 03:53 91 06/08/17 00:32 82 06/08/17 00:00 97.6 73 17 150/62 (91) 95 06/07/17 20:20 98.9 71 20 148/80 (102) 96 06/07/17 19:00 73 06/07/17 18:00 79 06/07/17 17:00 65 06/07/17 16:42 66 20 142/67 (92) 100 I/O 06/07/17 06/07/17 06/07/17 06/08/17 06/08/17 06/08/17 07:00 15:00 23:00 07:00 15:00 23:00 Intake Total 200 ml 350 ml 360 ml Output Total 200 ml 450 ml 100 ml Balance 0 ml -100 ml 260 ml Intake Oral 200 ml 350 ml 360 ml Output Urine Total 200 ml 450 ml 100 ml # Voids 1 2 # Bowel Movements 1 Result Diagram: 06/07/17 0513 06/08/17 0641 Imaging Last Impressions Chest X-Ray 06/05/17 7700 Signed Impressions: Service Date/Time: Monday, June 05, 2017 18:16 - CONCLUSION: Borderline heart size mild vascular congestion Garrett Joyce MD Objective Remarks GENERAL: Pleasant lady with mental deficits, short stature, complaining of abdominal pain when i came in CARDIOVASCULAR: Regular rate and rhythm without murmurs RESPIRATORY: Breath sounds equal bilaterally. No accessory muscle use. GASTROINTESTINAL: Abdomen soft, tender in the epigastric region EXTREMITIES: No edema. NEUROLOGICAL: Awake, alert, answers questions, follows commands A/P Problem List: (1) Altered mental status ICD Code: R41.82 - Altered mental status, unspecified Status: Acute (2) Elevated troponin ICD Code: R74.8 - Abnormal levels of other serum enzymes Status: Acute (3) Hypoglycemia ICD Code: E16.2 - Hypoglycemia, unspecified Status: Acute (4) Status post hip surgery ICD Code: Z98.890 - Other specified postprocedural states Assessment and Plan Altered mental status secondary to hypoglycemia resolved. Urinary tract infection on Rocephin, urine cx neg x 48 hrs. d/c rocephin Elevated troponin s/p cardiac cath w [id number] myocardial infarction suspected during her syncopal event. She might have been hypotensive and that is the etiology of her troponin elevation. 2. A 60% proximal mid-right coronary artery stenosis Medical management at this time Cardiology recommended aspirin 81 mg qd, start lipitor 10 mg hs, altace 2.5 mg qd, coreg 3.125 mg bid, f/u bmp Appreciate cardiology consult Epigastric pain Pt is very uncomfortable. complaining of epigastric pain. will check KUB, LFTs, check on set of trop and EKG. If worsening need to notify cards. I will consult GI for further assistance and recs. ximena prn s/p left hip surgery Performed at another hospital 2 weeks ago Surgical wounds appear clean dry and intact Moderate pain treated with Tylenol Continue physical therapy on lovenox Discharge Planning continue to monitor pt as she is having abd pain Problem Qualifiers (1) Altered mental status: Qualified Codes: R41.82 - Altered mental status, unspecified Paris Chawla MD Jun 08, 2017 16:12
[2017-06-08] MEDS ORDERED: ACETAMINOPHEN/HYDROcodone 325 MG/5 MG TAB PO ONE (16:30)
[2017-06-08] MEDS ORDERED: ONDANSETRON HCL 4 MG/2 ML VIAL IV PUSH PRN (16:30)
[2017-06-08 18:03] LABS: ALBUMIN 2.7 GM/DL (3.4-5.0); DIRECT BILIRUBIN ADULT 0.1 MG/DL (0.0-0.2)
[2017-06-08 18:05] LABS: INDIRECT BILIRUBIN 0.2 MG/DL (0.0-0.8); TOTAL BILIRUBIN ADULT 0.3 MG/DL (0.2-1.0); TOTAL PROTEIN 6.7 GM/DL (6.4-8.2)
--- NOTE | 2017-06-08 18:08 | RADRPT ---
EXAM DATE/TIME: 06/08/2017 17:33 [facility] COMPARISON: No previous studies available for comparison. INDICATIONS : Abdominal pain. MEDICAL HISTORY : None. SURGICAL HISTORY : None. ENCOUNTER: Initial ACUITY: 2 days PAIN SCORE: 5/10 LOCATION: Bilateral abdomen. FINDINGS: Supine view of the abdomen was performed. The abdominal bowel gas pattern is normal. Stimulator wire overlies right hemipelvis. Previous left proximal femur fixation. CONCLUSION: 1. No acute findings. Roderick Gold MD on June 08, 2017 at 18:05 Board Certified Radiologist. This report was verified electronically.
[2017-06-08] MEDS ORDERED: ENALAPRILAT 1.25 MG/ML VIAL IV PUSH PRN (19:15)
[2017-06-08] MEDS: SODIUM CHLOR 0.9% 1000 ML INJ 1,000 ML IV SCH (19:39)
[2017-06-08] MEDS: ALPRAZolam 1 MG TAB PO SCH (19:44)
[2017-06-08] MEDS: ATORVASTATIN 10 MG TAB PO SCH (19:44)
[2017-06-08] MEDS: MIRTAZAPINE 15 MG TAB PO SCH (19:45)
[2017-06-08] MEDS: QUEtiapine FUMARATE 200 MG TAB PO SCH (19:45)
[2017-06-08] MEDS: ENOXAPARIN SODIUM 40 MG/0.4 ML SYRINGE SQ SCH (19:45)
[2017-06-09] VITALS (7 sets, daily range): BP systolic 116–173; BP diastolic 61–94; PULSE 72–83; RESP 16–18; TEMP 97.4–98.6; O2SAT 95–97
[2017-06-09] MEDS: SODIUM CHLOR 0.9% 1000 ML INJ 1,000 ML IV SCH ×3 (02:54→21:07)
[2017-06-09] MEDS: ACETAMINOPHEN 500 MG CPLT PO PRN ×4 (02:54→21:08)
--- NOTE | 2017-06-09 08:48 | PD.CONS ---
HPI History of Present Illness This is a 71 year old F with PMH significant for MR, diabetes, emphysema, and recent hip fracture 2 weeks ago. Pt became unresponsive at her orthopedic appt and was found to be hypoglycemic, pt was transferred to the [facility] and became more alert after being given glucos. In the ED pt was found to have elevated troponin, cardiology did cardiac catheterization with no PCI. They recommend medical management of CAD. Our service has been consulted to evaluate pt for abdominal pain. Pt complaining of RUQ abdominal pain that began yesterday afternoon, states pain is intermittent and worse after eating. Described as aching pain. Denies epigastric pain. Associated nausea, denies emesis. Reports occasional dysphagia, history of this, previous EGD with dilatations done by Dr. Hines, pt is unable to tell me when her last EGD was. Denies acid reflux, heartburn, constipation, diarrhea, blood in stool. According to ER notes pt has been complaining of decreased appetite. She is unable to tell me when her last colonoscopy was. Denies ETOH, smoking, NSAIDs. (Rosaura Dee) PFSH Past Medical History MR, diabetes, emphysema with hip fracture 2 weeks ago COPD, Depression & Anxiety Past Surgical History Left hip fracture repair. Knee surgery EGD with dilatation (Rosaura Dee) Coded Allergies: penicillin G (Unverified Allergy, Severe, 10/02/16) MRI PRECAUTION (Verified Adverse Reaction, Severe, SPINAL STIMULATOR VV 10/12/10, 07/03/11) Family History Patient could not tell me. Social History Denies ETOH and smoking (Rosaura Dee) Review of Systems Gastrointestinal: COMPLAINS OF: Abdominal pain, Nausea, Difficulty Swallowing, DENIES: Black stools, Bloody stools, Constipation, Diarrhea, Vomiting, Odynophagia, Swelling of Abdomen, Heartburn, Hematemesis (Rosaura Dee) GI Exam Vitals I&O Vital Signs Date Time Temp Pulse Resp B/P (MAP) Pulse Ox O2 Delivery O2 Flow Rate FiO2 06/09/17 04:00 98.2 77 16 173/77 (109) 95 06/09/17 00:00 97.9 74 16 124/61 (82) 95 06/08/17 21:30 21 06/08/17 20:00 98.3 60 17 113/56 (75) 96 06/08/17 16:00 98.3 85 17 184/86 (118) 98 06/08/17 13:25 18 06/08/17 12:49 97.7 69 18 155/72 (99) 99 I/O 06/08/17 06/08/17 06/08/17 06/09/17 06/09/17 06/09/17 07:00 15:00 23:00 07:00 15:00 23:00 Intake Total 360 ml 500 ml Output Total 100 ml Balance 260 ml 500 ml Intake Oral 360 ml 500 ml Output Urine Total 100 ml # Voids 2 4 4 # Bowel Movements 1 1 Imaging Last Impressions Abdomen X-Ray 06/08/17 0000 Signed Impressions: Service Date/Time: Thursday, June 08, 2017 17:33 - CONCLUSION: 1. No acute findings. Roderick Gold MD Chest X-Ray 06/05/17 1747 Signed Impressions: Service Date/Time: Monday, June 05, 2017 18:16 - CONCLUSION: Borderline heart size mild vascular congestion Garrett Joyce MD Laboratory Test 06/08/17 16:53 Total Bilirubin 0.3 MG/DL Direct Bilirubin 0.1 MG/DL Indirect Bilirubin 0.2 MG/DL Aspartate Amino Transf (AST/SGOT) 19 U/L Alanine Aminotransferase (ALT/SGPT) 12 U/L Alkaline Phosphatase 126 U/L Troponin I 0.10 NG/ML Total Protein 6.7 GM/DL Albumin 2.7 GM/DL Lipase 458 U/L Date/Time Source Procedure Growth Status 06/05/17 21:10 Urine Random Urine Urine Culture - Final NO GROWTH IN 48 HOURS. Complete Physical Examination HEENT: Normocephalic CHEST: Even/unlabored CARDIAC: RRR ABDOMEN: Soft, nondistended, mild RUQ tenderness;bowel sounds active SKIN: Pale DIRECTOR OF CODING: Alert and oriented times three. (Rosaura Dee) Assessment and Plan Plan Assessment: - RUQ pain that began yesterday afternoon, described as aching, worse after eating. Associated nausea, denies emesis. KUB ordered by attending reveals no acute abnormalities Pt unsure when last EGD was, seen by our service in the past who noted previous EGD from 2010 --> distal esophageal ring, s/p dilatation with the Savary guidewire dilatation, 16 mm. Mild gastritis, Large ulcer in the duodenum with vessels cauterized and injected. - Dysphagia with solids, history of this Modified Barium swallow 2010 --> Normal barium swallow with speech pathology. Previous dilatation as noted above - Anemia- drop from 4 to 4- likely multifactorial, no obvious GIB - Slightly elevated lipase, no CT results to assess pancreas- unclear significance - Elevated Alk phos- trending down, unclear significance - Elevated troponin S/P cardiac cath with no PCI three days ago, cardio recommending medical management. Currently on Lovenox daily Plan: US gallbladder pending If negative consider CT abdomen Nausea medication PRN Supportive care Further recommendations based on findings of above Pt has been seen and examined by myself and Dr. Rascon and this note is written on his behalf (Rosaura Dee) Physician Comments Patient seen and examined Agree with above Continue with current supportive care Monitor labs Further recommendations she will depend on the ultrasound (Jax Rascon MD) Rosaura Dee Jun 09, 2017 08:48 Jax Rascon MD Jun 09, 2017 22:58
[2017-06-09] MEDS: SODIUM CHLORIDE 0.9% FLUSH 10 ML FLUSH IV FLUSH SCH ×2 (09:00→21:06)
[2017-06-09] MEDS: FLUTICASONE 200 MCG/VILANTEROL 25 MCG INHALER INH SCH (09:00)
[2017-06-09] MEDS: BRIMONIDINE TARTRATE 0.2% OPHT SOLN 5 ML BTL EACH EYE SCH ×2 (09:00→21:06)
--- NOTE | 2017-06-09 09:23 | RADRPT ---
EXAM DATE/TIME: 06/09/2017 07:56 [facility] COMPARISON: No previous studies available for comparison. INDICATIONS : Right upper quadrant pain. MEDICAL HISTORY : Chronic obstructive pulmonary disease. Glasses. Aortic insufficiency. Emphysema. Dyspnea. Diabete s. Schizophrenia. Depression. Anxiety. Anemia. SURGICAL HISTORY : Tubal ligation. Left hip repair. Knee surgery. ENCOUNTER: Initial ACUITY: 1 day PAIN SCORE: 2/10 LOCATION: Right upper quadrant MEASUREMENTS: LIVER: 12.8 cm length COMMON DUCT: 6 mm RIGHT KIDNEY: 9.1 x 3.5 x 3.8 cm FINDINGS: LIVER: Normal echotexture without focal lesion or ductal dilatation. COMMON DUCT: No intraluminal mass or stone visualized. GALLBLADDER: The gallbladder is small and contracted in appearance. There is borderline wall thickening measuring 3 mm. PANCREAS: The visualized portions are within normal limits. The head and tail were not well-visualized. RIGHT KIDNEY: No evidence of hydronephrosis, stone, or mass. CONCLUSION: 1. Gallbladder is small and contracted in appearance with borderline wall thickening which may be art ifactual. There is no evidence of cholelithiasis. 2. Common bile duct is at the upper limits of normal no evidence of choledocholithiasis. 3. Suboptimal visualization secondary to overlying bowel gas. Inocente Bradley MD on June 09, 2017 at 9:18 Board Certified Radiologist. This report was verified electronically.
[2017-06-09] MEDS: PANTOPRAZOLE SOD 40 MG DELAYED RELEASE TAB PO SCH ×2 (10:13→21:05)
[2017-06-09] MEDS: DRONABINOL 2.5 MG CAP PO SCH ×2 (10:13→16:19)
[2017-06-09] MEDS: FERROUS SULFATE 325 MG (65 MG ELEMENTAL IRON) TAB PO SCH (10:13)
[2017-06-09] MEDS: CARVEDILOL 3.125 MG TAB PO SCH ×2 (10:13→21:05)
[2017-06-09] MEDS: RAMIPRIL 2.5 MG CAP PO SCH (10:13)
--- NOTE | 2017-06-09 11:32 | HHI.PR ---
Subjective Remarks Patient states she is feeling a bit better. Her abdominal pain is improving. She has very poor appetite. No nausea or vomiting at this time. Pain is controlled. Objective Vitals Vital Signs Date Time Temp Pulse Resp B/P (MAP) Pulse Ox O2 Delivery O2 Flow Rate FiO2 06/09/17 08:00 98.4 83 16 158/94 (115) 96 06/09/17 04:00 98.2 77 16 173/77 (109) 95 06/09/17 00:00 97.9 74 16 124/61 (82) 95 06/08/17 21:30 21 06/08/17 20:00 98.3 60 17 113/56 (75) 96 06/08/17 16:00 98.3 85 17 184/86 (118) 98 06/08/17 13:25 18 06/08/17 12:49 97.7 69 18 155/72 (99) 99 I/O 06/08/17 06/08/17 06/08/17 06/09/17 06/09/17 06/09/17 07:00 15:00 23:00 07:00 15:00 23:00 Intake Total 360 ml 500 ml Output Total 100 ml Balance 260 ml 500 ml Intake Oral 360 ml 500 ml Output Urine Total 100 ml # Voids 2 4 4 # Bowel Movements 1 1 Result Diagram: 06/07/17 0513 06/08/17 0641 Imaging Last Impressions Gall Bladder Ultrasound 06/09/17 0000 Signed Impressions: Service Date/Time: Friday, June 09, 2017 07:56 - CONCLUSION: 1. Gallbladder is small and contracted in appearance with borderline wall thickening which may be artifactual. There is no evidence of cholelithiasis. 2. Common bile duct is at the upper limits of normal no evidence of choledocholithiasis. 3. Suboptimal visualization secondary to overlying bowel gas. Inocente Bradley MD Abdomen X-Ray 06/08/17 0000 Signed Impressions: Service Date/Time: Thursday, June 08, 2017 17:33 - CONCLUSION: 1. No acute findings. Roderick Gold MD Chest X-Ray 06/05/17 1747 Signed Impressions: Service Date/Time: Monday, June 05, 2017 18:16 - CONCLUSION: Borderline heart size mild vascular congestion Garrett Joyce MD Objective Remarks GENERAL: Pleasant lady with mental deficits, short stature, appears more comfortable. CARDIOVASCULAR: Regular rate and rhythm without murmurs RESPIRATORY: Breath sounds equal bilaterally. No accessory muscle use. GASTROINTESTINAL: Abdomen soft, still some tender in the epigastric region EXTREMITIES: No edema. Small dressing over incision d/c/i NEUROLOGICAL: Awake, alert, answers questions, follows commands A/P Problem List: (1) Altered mental status ICD Code: R41.82 - Altered mental status, unspecified Status: Acute (2) Elevated troponin ICD Code: R74.8 - Abnormal levels of other serum enzymes Status: Acute (3) Hypoglycemia ICD Code: E16.2 - Hypoglycemia, unspecified Status: Acute (4) Status post hip surgery ICD Code: Z98.890 - Other specified postprocedural states Assessment and Plan Altered mental status secondary to hypoglycemia resolved. Urinary tract infection on Rocephin, urine cx neg x 48 hrs. d/c rocephin Elevated troponin s/p cardiac cath w [id number] myocardial infarction suspected during her syncopal event. She might have been hypotensive and that is the etiology of her troponin elevation. 2. A 60% proximal mid-right coronary artery stenosis Medical management at this time Cardiology recommended aspirin 81 mg qd, start lipitor 10 mg hs, altace 2.5 mg qd, coreg 3.125 mg bid, f/u bmp Appreciate cardiology consult Epigastric pain seems to be improving.Awaiting repeat lipase levels. Continue IVFs. pt w poor appetite Awaiting recs from GI u/s gallbladder reviewed. zofran prn s/p left hip surgery Performed at another hospital 2 weeks ago Surgical wounds appear clean dry and intact Moderate pain treated with Tylenol Continue physical therapy on lovenox Discharge Planning continue to monitor pt. encourage po intake. Problem Qualifiers (1) Altered mental status: Qualified Codes: R41.82 - Altered mental status, unspecified Paris Chawla MD Jun 09, 2017 11:32
--- NOTE | 2017-06-09 12:17 | PD.CARD.PN ---
Subjective Subjective Remarks alert in nad, denies chest pain Objective Medications Current Medications Medications (Trade) Dose Ordered Sig/Rosa Route Start Time Stop Time Status Last Admin (NS Flush) 2 ml UNSCH PRN IVF 06/05/17 18:00 06/05/17 18:35 (Nitrostat Sl) 0.4 mg Q5M PRN SL 06/06/17 00:30 (Tylenol) 500 mg Q4H PRN PO 06/06/17 00:30 06/09/17 10:17 (Morphine Inj) 2 mg Q3H PRN IV PUSH 06/06/17 00:30 06/06/17 09:19 (Duoneb Neb) 1 ampule Q4HR NEB PRN NEB 06/06/17 00:30 (Xanax) 1 mg HS PO 06/06/17 21:00 06/08/17 19:44 (Alphagan 0.2% Opth Soln) 1 drop BID EACH EYE 06/06/17 09:00 06/08/17 19:45 (Ferrous Sulfate) 325 mg DAILY PO 06/06/17 09:00 06/09/17 10:13 (Breo Ellipta 200-25 Inh) 1 puff DAILY INH 06/06/17 09:00 06/08/17 08:07 (SEROquel) 200 mg HS PO 06/06/17 21:00 06/08/17 19:45 (Remeron) 45 mg HS PO 06/06/17 21:00 06/08/17 19:45 (Protonix) 40 mg BID PO 06/06/17 09:00 06/09/17 10:13 (NS Flush) 2 ml UNSCH PRN IV FLUSH 06/06/17 16:15 (NS Flush) 2 ml BID IV FLUSH 06/06/17 21:00 06/08/17 19:40 (Lipitor) 10 mg HS PO 06/08/17 21:00 06/08/17 19:44 (Coreg) 3.125 mg Q12HR PO 06/07/17 21:00 06/09/17 10:13 (Altace) 2.5 mg DAILY PO 06/08/17 09:00 06/09/17 10:13 (Catapres) 0.1 mg Q6H PRN PO 06/07/17 09:00 (Marinol) 2.5 mg BID@11,16 PO 06/07/17 11:00 06/09/17 10:13 (D50w (Vial) Inj) 50 ml UNSCH PRN IV PUSH 06/07/17 09:15 (Glucagon Inj) 1 mg UNSCH PRN OTHER 06/07/17 09:15 (Tylenol) 500 mg Q6H PRN PO 06/07/17 19:00 06/07/17 21:19 (Lovenox Inj) 40 mg Q24H SQ 06/07/17 20:00 06/08/17 19:45 (Zofran Inj) 4 mg Q6HR PRN IV PUSH 06/08/17 16:30 06/08/17 16:52 (Vasotec Inj) 1.25 mg Q6H PRN IV PUSH 06/08/17 19:15 Sodium Chloride 1,000 ml @ 125 mls/hr Q8H IV 06/08/17 19:15 06/09/17 02:54 Vital Signs / I&O Vital Signs Date Time Temp Pulse Resp B/P (MAP) Pulse Ox O2 Delivery O2 Flow Rate FiO2 06/09/17 08:00 98.4 83 16 158/94 (115) 96 06/09/17 04:00 98.2 77 16 173/77 (109) 95 06/09/17 00:00 97.9 74 16 124/61 (82) 95 06/08/17 21:30 21 06/08/17 20:00 98.3 60 17 113/56 (75) 96 06/08/17 16:00 98.3 85 17 184/86 (118) 98 06/08/17 13:25 18 06/08/17 12:49 97.7 69 18 155/72 (99) 99 I/O 06/08/17 06/08/17 06/08/17 06/09/17 06/09/17 06/09/17 07:00 15:00 23:00 07:00 15:00 23:00 Intake Total 360 ml 500 ml Output Total 100 ml Balance 260 ml 500 ml Intake Oral 360 ml 500 ml Output Urine Total 100 ml # Voids 2 4 4 # Bowel Movements 1 1 Physical Exam GENERAL: SKIN: Warm and dry. HEAD: Normocephalic. EYES: No scleral icterus. No injection or drainage. NECK: Supple, trachea midline. No JVD or lymphadenopathy. CARDIOVASCULAR: Regular rate and rhythm without murmurs, gallops, or rubs. RESPIRATORY: Breath sounds equal bilaterally. No accessory muscle use. GASTROINTESTINAL: Abdomen soft, non-tender, nondistended. MUSCULOSKELETAL: No cyanosis, or edema. BACK: Nontender without obvious deformity. No CVA tenderness. Laboratory Laboratory Tests Test 06/08/17 16:53 Total Bilirubin 0.3 MG/DL Direct Bilirubin 0.1 MG/DL Indirect Bilirubin 0.2 MG/DL Aspartate Amino Transf (AST/SGOT) 19 U/L Alanine Aminotransferase (ALT/SGPT) 12 U/L Alkaline Phosphatase 126 U/L Troponin I 0.10 NG/ML Total Protein 6.7 GM/DL Albumin 2.7 GM/DL Lipase 458 U/L Imaging Last 24 hours Impressions Gall Bladder Ultrasound 06/09/17 0000 Signed Impressions: Service Date/Time: Friday, June 09, 2017 07:56 - CONCLUSION: 1. Gallbladder is small and contracted in appearance with borderline wall thickening which may be artifactual. There is no evidence of cholelithiasis. 2. Common bile duct is at the upper limits of normal no evidence of choledocholithiasis. 3. Suboptimal visualization secondary to overlying bowel gas. Inocente Bradley MD Assessment and Plan Problem List: (1) CAD (coronary artery disease) ICD Codes: I25.10 - Atherosclerotic heart disease of [place] coronary artery without angina pectoris (2) NSTEMI (non-ST elevated myocardial infarction) ICD Codes: I21.4 - Non-ST elevation (NSTEMI) myocardial infarction (3) Altered mental status ICD Codes: R41.82 - Altered mental status, unspecified Status: Acute (4) Elevated troponin ICD Codes: R74.8 - Abnormal levels of other serum enzymes Status: Acute Assessment and Plan 1.) CAD - assymptomatic, change aspirin 81 mg qd, start lipitor 10 mg hs, altace 2.5 mg qd, coreg 3.125 mg bid, f/u bmp wnl Problem Qualifiers (1) Altered mental status: Qualified Codes: R41.82 - Altered mental status, unspecified Lan Gomez MD Jun 09, 2017 12:17
[2017-06-09 13:11] LABS: HEMATOCRIT 29.4 % (35.0-46.0); HEMOGLOBIN 9.6 GM/DL (11.6-15.3)
[2017-06-09] MEDS: ATORVASTATIN 10 MG TAB PO SCH (21:05)
[2017-06-09] MEDS: MIRTAZAPINE 15 MG TAB PO SCH (21:06)
[2017-06-09] MEDS: ENOXAPARIN SODIUM 40 MG/0.4 ML SYRINGE SQ SCH (21:06)
[2017-06-09] MEDS: ALPRAZolam 1 MG TAB PO SCH (21:06)
[2017-06-09] MEDS: QUEtiapine FUMARATE 200 MG TAB PO SCH (21:06)
[2017-06-10] VITALS (9 sets, daily range): BP systolic 99–189; BP diastolic 52–84; PULSE 67–83; RESP 16; TEMP 97.2–98.3; O2SAT 95–98
--- NOTE | 2017-06-10 00:35 | EKG ---
Date Performed: 06/08/2017 Time Performed: 17:35:58 PTAGE: 71 years EKG: Sinus rhythm WITH MARKED SINUS ARRHYTHMIA BORDERLINE ECG PREVIOUS TRACING : 06/07/2017 05.28 Since the previous tracing, no significant change noted DOCTOR: Tyrone Moreland Interpretating Date/Time 06/10/2017 00:34:24
[2017-06-10] MEDS: ACETAMINOPHEN 500 MG CPLT PO PRN ×3 (03:47→17:13)
[2017-06-10] MEDS: SODIUM CHLOR 0.9% 1000 ML INJ 1,000 ML IV SCH ×2 (03:48→11:15)
[2017-06-10 05:34] LABS: AUTOMATED NEUTROPHIL # 2.1 TH/MM3 (1.8-7.7); BASOPHIL # 0.1 TH/MM3 (0-0.2); EOSINOPHIL % 15.3 % (0.0-4.0); HEMATOCRIT 30.7 % (35.0-46.0); HEMOGLOBIN 10.1 GM/DL (11.6-15.3); LYMPH % 40.6 % (9.0-44.0); LYMPHOCYTE # 2.7 TH/MM3 (1.0-4.8); MEAN CORPUSCULAR HGB CONC 32.9 % (32.0-36.0); MEAN PLATELET VOLUME 8.2 FL (7.0-11.0); MONO % 11.1 % (0.0-8.0); MONOCYTE # 0.7 TH/MM3 (0-0.9); PLATELET COUNT 309 TH/MM3 (150-450); RED BLOOD COUNT 3.61 MIL/MM3 (4.00-5.30); RED CELL DISTRIBUTION WIDTH 16.3 % (11.6-17.2); WHITE BLOOD COUNT 6.6 TH/MM3 (4.0-11.0)
[2017-06-10 05:59] LABS: BICARBONATE 24.8 MEQ/L (21.0-32.0); CALCIUM 8.8 MG/DL (8.5-10.1); CREATININE 0.7 MG/DL (0.50-1.00)
[2017-06-10] MEDS: BRIMONIDINE TARTRATE 0.2% OPHT SOLN 5 ML BTL EACH EYE SCH ×2 (08:50→19:48)
[2017-06-10] MEDS: FLUTICASONE 200 MCG/VILANTEROL 25 MCG INHALER INH SCH (08:50)
[2017-06-10] MEDS: SODIUM CHLORIDE 0.9% FLUSH 10 ML FLUSH IV FLUSH SCH ×2 (08:51→19:48)
[2017-06-10] MEDS: CARVEDILOL 3.125 MG TAB PO SCH ×2 (08:53→19:47)
[2017-06-10] MEDS: PANTOPRAZOLE SOD 40 MG DELAYED RELEASE TAB PO SCH ×2 (08:53→19:48)
[2017-06-10] MEDS: FERROUS SULFATE 325 MG (65 MG ELEMENTAL IRON) TAB PO SCH (08:53)
[2017-06-10] MEDS: RAMIPRIL 2.5 MG CAP PO SCH (08:53)
[2017-06-10] MEDS: DRONABINOL 2.5 MG CAP PO SCH ×2 (10:34→17:10)
--- NOTE | 2017-06-10 11:31 | HHI.PR ---
Subjective Remarks Patient reports abdominal pain. She reports poor appetite. Had pain after eating. Objective Vitals Vital Signs Date Time Temp Pulse Resp B/P (MAP) Pulse Ox O2 Delivery O2 Flow Rate FiO2 06/10/17 09:53 98 06/10/17 08:00 98.1 83 16 179/79 (112) 98 06/10/17 03:15 97.2 70 16 163/76 (105) 95 06/09/17 23:25 97.6 72 16 116/61 (79) 95 06/09/17 19:00 98.6 74 16 150/83 (105) 97 06/09/17 17:19 18 06/09/17 16:38 98.2 78 18 156/67 (96) 97 06/09/17 12:31 97.4 73 18 149/74 (99) 96 I/O 06/09/17 06/09/17 06/09/17 06/10/17 06/10/17 06/10/17 07:00 15:00 23:00 07:00 15:00 23:00 Intake Total 1800 ml 940 ml Balance 1800 ml 940 ml Intake Oral 800 ml IV Total 1000 ml 940 ml # Voids 4 6 # Bowel Movements 1 Result Diagram: 06/10/17 0432 06/10/17 043 Objective Remarks GENERAL: Pleasant lady with mental deficits, short stature, complaining of abdominal pain when i came in CARDIOVASCULAR: Regular rate and rhythm without murmurs RESPIRATORY: Breath sounds equal bilaterally. No accessory muscle use. GASTROINTESTINAL: Abdomen soft, tender in the epigastric region EXTREMITIES: No edema. NEUROLOGICAL: Awake, alert, answers questions, follows commands A/P Problem List: (1) Altered mental status ICD Code: R41.82 - Altered mental status, unspecified Status: Acute (2) Elevated troponin ICD Code: R74.8 - Abnormal levels of other serum enzymes Status: Acute (3) Hypoglycemia ICD Code: E16.2 - Hypoglycemia, unspecified Status: Acute (4) Status post hip surgery ICD Code: Z98.890 - Other specified postprocedural states Assessment and Plan Altered mental status secondary to hypoglycemia resolved. Urinary tract infection on Rocephin, urine cx neg x 48 hrs. d/jesus rocephin Elevated troponin s/p cardiac cath w [id number] myocardial infarction suspected during her syncopal event. She might have been hypotensive and that is the etiology of her troponin elevation. 2. A 60% proximal mid-right coronary artery stenosis Medical management at this time Cardiology recommended aspirin 81 mg qd, start lipitor 10 mg hs, altace 2.5 mg qd, coreg 3.125 mg bid Appreciate cardiology consult Epigastric pain Pt w poor appetite Awaiting recs from GI u/s gallbladder reviewed. No acute findings. Will obtain abdominal CT. H/O gastritis and Duodenal ulcers per GI, continue Protonix. Further plans per GI zofran prn s/p left hip surgery Performed at another hospital 2 weeks ago Surgical wounds appear clean dry and intact Moderate pain treated with Tylenol Continue physical therapy on lovenox Problem Qualifiers (1) Altered mental status: Qualified Codes: R41.82 - Altered mental status, unspecified Eder Harvey MD Jun 10, 2017 11:31
[2017-06-10] MEDS ORDERED: DIATRIZOATE MEGLUM/DIATRIZOATE SOD 9 ML CUP PO ONE (12:00)
[2017-06-10] MEDS ORDERED: amLODIPine BESYLATE 5 MG TAB PO ONE (13:15)
--- NOTE | 2017-06-10 14:55 | HHI.GIFU ---
Subjective Remarks Resting in the bed, incontinent of some stool BM 3 today, semisoft No abdominal pain Afebrile (Bette Leon) Objective Vitals I&O Vital Signs Date Time Temp Pulse Resp B/P (MAP) Pulse Ox O2 Delivery O2 Flow Rate FiO2 06/10/17 13:47 176/72 (106) 06/10/17 12:00 98.1 67 16 189/84 (119) 95 06/10/17 09:53 98 06/10/17 08:00 98.1 83 16 179/79 (112) 98 06/10/17 03:15 97.2 70 16 163/76 (105) 95 06/09/17 23:25 97.6 72 16 116/61 (79) 95 06/09/17 19:00 98.6 74 16 150/83 (105) 97 06/09/17 17:19 18 06/09/17 16:38 98.2 78 18 156/67 (96) 97 I/O 06/09/17 06/09/17 06/09/17 06/10/17 06/10/17 06/10/17 07:00 15:00 23:00 07:00 15:00 23:00 Intake Total 1800 ml 940 ml Balance 1800 ml 940 ml Intake Oral 800 ml IV Total 1000 ml 940 ml # Voids 4 6 # Bowel Movements 1 Laboratory Laboratory Tests Test 06/10/17 04:32 White Blood Count 6.6 Red Blood Count 3.61 Hemoglobin 10.1 Hematocrit 30.7 Mean Corpuscular Volume 85.0 Mean Corpuscular Hemoglobin 28.0 Mean Corpuscular Hemoglobin Concent 32.9 Red Cell Distribution Width 16.3 Platelet Count 309 Mean Platelet Volume 8.2 Neutrophils (%) (Auto) 32.0 Lymphocytes (%) (Auto) 40.6 Monocytes (%) (Auto) 11.1 Eosinophils (%) (Auto) 15.3 Basophils (%) (Auto) 1.0 Neutrophils # (Auto) 2.1 Lymphocytes # (Auto) 2.7 Monocytes # (Auto) 0.7 Eosinophils # (Auto) 1.0 Basophils # (Auto) 0.1 CBC Comment DIFF FINAL Differential Comment Blood Urea Nitrogen 12 Creatinine 0.70 Random Glucose 71 Calcium Level 8.8 Sodium Level 144 Potassium Level 3.9 Chloride Level 111 Carbon Dioxide Level 24.8 Anion Gap 8 Estimat Glomerular Filtration Rate 83 Lipase 377 Date/Time Source Procedure Growth Status 06/05/17 21:10 Urine Random Urine Urine Culture - Final NO GROWTH IN 48 HOURS. Complete Imaging Last Impressions Gall Bladder Ultrasound 06/09/17 0000 Signed Impressions: Service Date/Time: Friday, June 09, 2017 07:56 - CONCLUSION: 1. Gallbladder is small and contracted in appearance with borderline wall thickening which may be artifactual. There is no evidence of cholelithiasis. 2. Common bile duct is at the upper limits of normal no evidence of choledocholithiasis. 3. Suboptimal visualization secondary to overlying bowel gas. Inocente Bradley MD Abdomen X-Ray 06/08/17 0000 Signed Impressions: Service Date/Time: Thursday, June 08, 2017 17:33 - CONCLUSION: 1. No acute findings. Roderick Gold MD Chest X-Ray 06/05/17 1747 Signed Impressions: Service Date/Time: Monday, June 05, 2017 18:16 - CONCLUSION: Borderline heart size mild vascular congestion Garrett Joyce MD Physical Exam HEENT: Pupils round and reactive to light; normocephalic; pale color, NECK: Neck is supple CHEST: Chest is clear to auscultation and percussion., No obvious rhonchi or wheezing CARDIAC: Regular rate and rhythm ABDOMEN: Flat, soft, nondistended, nontender to light palpation; bowel sounds are present in all four quadrants. EXTREMITIES: No clubbing, cyanosis, or edema. SKIN: Pale, normal; no rash; no jaundice. [employer]: Answers simple questions (Bette Leon) Assessment and Plan Plan Assessment: - RUQ pain that began yesterday afternoon, described as aching, worse after eating. Associated nausea, denies emesis. KUB ordered by attending reveals no acute abnormalities Pt unsure when last EGD was, seen by our service in the past who noted previous EGD from 2010 --> distal esophageal ring, s/p dilatation with the Savary guidewire dilatation, 16 mm. Mild gastritis, Large ulcer in the duodenum with vessels cauterized and injected. - Dysphagia with solids, history of this Modified Barium swallow 2010 --> Normal barium swallow with speech pathology. Previous dilatation as noted above - Anemia- drop from 06/05 to 06/07- likely multifactorial, no obvious GIB - Slightly elevated lipase, no CT results to assess pancreas- unclear significance - Elevated Alk phos- trending down, unclear significance - Elevated troponin S/P cardiac cath with no PCI three days ago, cardio recommending medical management. Currently on Lovenox daily 06/10/2017, ultrasound of the gallbladder completed on 06/09 shows borderline wall thickening which may be artifact. No evidence of cholelithiasis common bile duct is at the upper limits of normal with no evidence of cholelithiasis visual suboptimal secondary to overlying bowel gas. Since ultrasound negative will follow up with CT. current hemoglobin 10.1, no obvious bleeding Plan: CT abdomen, Anti-emetics Bowel regimen, monitor color and consistency of stools Supportive care Further recommendations based on findings of above Pt has been seen and examined by myself and Dr. Rascon, note is written on his behalf (Bette Leon) Physician Comments Patient seen and examined Agree with above Continue with current supportive care Monitor lab CT is showing diverticulitis, patient will need to be on antibiotics for this (Jax Rascon MD) Bette Leon Jun 10, 2017 14:55 Jax Rascon MD Jun 11, 2017 00:26
--- NOTE | 2017-06-10 17:47 | PD.CARD.PN ---
Subjective Subjective Remarks alert in nad, denies chest pain Objective Medications Current Medications Medications (Trade) Dose Ordered Sig/Rosa Route Start Time Stop Time Status Last Admin (Nitrostat Sl) 0.4 mg Q5M PRN SL 06/06/17 00:30 (Tylenol) 500 mg Q4H PRN PO 06/06/17 00:30 06/10/17 17:13 (Morphine Inj) 2 mg Q3H PRN IV PUSH 06/06/17 00:30 06/06/17 09:19 (Duoneb Neb) 1 ampule Q4HR NEB PRN NEB 06/06/17 00:30 (Xanax) 1 mg HS PO 06/06/17 21:00 06/09/17 21:06 (Alphagan 0.2% Opth Soln) 1 drop BID EACH EYE 06/06/17 09:00 06/10/17 08:50 (Ferrous Sulfate) 325 mg DAILY PO 06/06/17 09:00 06/10/17 08:53 (Breo Ellipta 200-25 Inh) 1 puff DAILY INH 06/06/17 09:00 06/10/17 08:50 (SEROquel) 200 mg HS PO 06/06/17 21:00 06/09/17 21:06 (Remeron) 45 mg HS PO 06/06/17 21:00 06/09/17 21:06 (Protonix) 40 mg BID PO 06/06/17 09:00 06/10/17 08:53 (NS Flush) 2 ml UNSCH PRN IV FLUSH 06/06/17 16:15 (NS Flush) 2 ml BID IV FLUSH 06/06/17 21:00 06/10/17 08:51 (Lipitor) 10 mg HS PO 06/08/17 21:00 06/09/17 21:05 (Coreg) 3.125 mg Q12HR PO 06/07/17 21:00 06/10/17 08:53 (Catapres) 0.1 mg Q6H PRN PO 06/07/17 09:00 06/10/17 12:43 (Marinol) 2.5 mg BID@11,16 PO 06/07/17 11:00 06/10/17 17:10 (D50w (Vial) Inj) 50 ml UNSCH PRN IV PUSH 06/07/17 09:15 (Glucagon Inj) 1 mg UNSCH PRN OTHER 06/07/17 09:15 (Tylenol) 500 mg Q6H PRN PO 06/07/17 19:00 06/07/17 21:19 (Lovenox Inj) 40 mg Q24H SQ 06/07/17 20:00 06/09/17 21:06 (Zofran Inj) 4 mg Q6HR PRN IV PUSH 06/08/17 16:30 06/08/17 16:52 (Vasotec Inj) 1.25 mg Q6H PRN IV PUSH 06/08/17 19:15 06/10/17 03:49 (Norvasc) 5 mg DAILY PO 06/11/17 09:00 (Altace) 5 mg DAILY PO 06/11/17 09:00 Vital Signs / I&O Vital Signs Date Time Temp Pulse Resp B/P (MAP) Pulse Ox O2 Delivery O2 Flow Rate FiO2 06/10/17 17:44 98 21 06/10/17 17:01 97.4 69 16 138/80 (99) 98 06/10/17 13:47 176/72 (106) 06/10/17 12:00 98.1 67 16 189/84 (119) 95 06/10/17 09:53 98 06/10/17 08:00 98.1 83 16 179/79 (112) 98 06/10/17 03:15 97.2 70 16 163/76 (105) 95 06/09/17 23:25 97.6 72 16 116/61 (79) 95 06/09/17 19:00 98.6 74 16 150/83 (105) 97 I/O 06/09/17 06/09/17 06/09/17 06/10/17 06/10/17 06/10/17 06:59 14:59 22:59 06:59 14:59 22:59 Intake Total 1800 ml 940 ml 1000 ml Output Total 1000 ml Balance 1800 ml 940 ml 0 ml Intake Oral 800 ml 1000 ml IV Total 1000 ml 940 ml Output Urine Total 1000 ml # Voids 4 5 1 # Bowel Movements 1 1 Physical Exam GENERAL: SKIN: Warm and dry. HEAD: Normocephalic. EYES: No scleral icterus. No injection or drainage. NECK: Supple, trachea midline. No JVD or lymphadenopathy. CARDIOVASCULAR: Regular rate and rhythm without murmurs, gallops, or rubs. RESPIRATORY: Breath sounds equal bilaterally. No accessory muscle use. GASTROINTESTINAL: Abdomen soft, non-tender, nondistended. MUSCULOSKELETAL: No cyanosis, or edema. BACK: Nontender without obvious deformity. No CVA tenderness. Laboratory Laboratory Tests Test 06/10/17 04:32 White Blood Count 6.6 TH/MM3 Red Blood Count 3.61 MIL/MM3 Hemoglobin 10.1 GM/DL Hematocrit 30.7 % Mean Corpuscular Volume 85.0 FL Mean Corpuscular Hemoglobin 28.0 PG Mean Corpuscular Hemoglobin Concent 32.9 % Red Cell Distribution Width 16.3 % Platelet Count 309 TH/MM3 Mean Platelet Volume 8.2 FL Neutrophils (%) (Auto) 32.0 % Lymphocytes (%) (Auto) 40.6 % Monocytes (%) (Auto) 11.1 % Eosinophils (%) (Auto) 15.3 % Basophils (%) (Auto) 1.0 % Neutrophils # (Auto) 2.1 TH/MM3 Lymphocytes # (Auto) 2.7 TH/MM3 Monocytes # (Auto) 0.7 TH/MM3 Eosinophils # (Auto) 1.0 TH/MM3 Basophils # (Auto) 0.1 TH/MM3 CBC Comment DIFF FINAL Differential Comment Blood Urea Nitrogen 12 MG/DL Creatinine 0.70 MG/DL Random Glucose 71 MG/DL Calcium Level 8.8 MG/DL Sodium Level 144 MEQ/L Potassium Level 3.9 MEQ/L Chloride Level 111 MEQ/L Carbon Dioxide Level 24.8 MEQ/L Anion Gap 8 MEQ/L Estimat Glomerular Filtration Rate 83 ML/MIN Lipase 377 U/L Assessment and Plan Problem List: (1) CAD (coronary artery disease) ICD Codes: I25.10 - Atherosclerotic heart disease of [place] coronary artery without angina pectoris (2) NSTEMI (non-ST elevated myocardial infarction) ICD Codes: I21.4 - Non-ST elevation (NSTEMI) myocardial infarction (3) Altered mental status ICD Codes: R41.82 - Altered mental status, unspecified Status: Acute (4) Elevated troponin ICD Codes: R74.8 - Abnormal levels of other serum enzymes Status: Acute Assessment and Plan 1.) CAD - assymptomatic, change aspirin 81 mg qd, start lipitor 10 mg hs, altace 2.5 mg qd, coreg 3.125 mg bid, f/u bmp wnl 2.) HTN - start norvasc 5 mg qd, Dr Reyes increased altace 5 mg qd Problem Qualifiers (1) Altered mental status: Qualified Codes: R41.82 - Altered mental status, unspecified Lan Gomez MD Jun 10, 2017 17:47
--- NOTE | 2017-06-10 18:13 | RADRPT ---
EXAM DATE/TIME: 06/10/2017 15:49 [facility] COMPARISON: No previous studies available for comparison. INDICATIONS : Patient complains of abdominal pain. ORAL CONTRAST: Prescribed oral contrast ingested. RADIATION DOSE: 6.64 CTDIvol (mGy) MEDICAL HISTORY : Cardiovascular disease. Chronic obstructive pulmonary disease. Diabetes mellitus type 1.ulcer SURGICAL HISTORY : Tubal ligation. ENCOUNTER: Initial ACUITY: 1 day PAIN SCALE: 5/10 LOCATION: abdomen TECH NOTE: Infiltrated 40ccs omnipaque in left upper arm. Doctor Gonzalez notified. TECHNIQUE: Volumetric scanning of the abdomen and pelvis was performed. Using automated exposure control and ad justment of the mA and/or kV according to patient size, radiation dose was kept as low as reasonably achievable to obtain optimal diagnostic quality images. DICOM format image data is available electro nically for review and comparison. FINDINGS: No acute abnormality seen in the solid organs. Patient has had cholecystectomy. There is florid diverticulosis of the sigmoid colon. There is mild wall thickening of the distal sigm oid colon suggesting mild diverticulitis. No abscess, perforation or obstruction. There is no free ai r. There is a subacute appearing hematoma in the soft tissues overlying the left greater trochanter that measures approximately 4.0 x 5.8 x 5.4 cm. Patient has a left trochanteric nail and femoral falguni. No acute bony abnormalities are demonstrated. Visualized lung bases are grossly clear. CONCLUSION: 1. Mild uncomplicated diverticulitis of the distal sigmoid colon. 2. No other acute intra-abdominal abnormalities are demonstrated. 3. There is a subacute appearing hematoma in the soft tissues overlying the left greater trochanter. Garrett Soliz MD on June 10, 2017 at 18:06 Board Certified Radiologist. This report was verified electronically.
[2017-06-10] MEDS: MIRTAZAPINE 15 MG TAB PO SCH (19:47)
[2017-06-10] MEDS: ALPRAZolam 1 MG TAB PO SCH (19:47)
[2017-06-10] MEDS: ENOXAPARIN SODIUM 40 MG/0.4 ML SYRINGE SQ SCH (19:47)
[2017-06-10] MEDS: QUEtiapine FUMARATE 200 MG TAB PO SCH (19:47)
[2017-06-10] MEDS: ATORVASTATIN 10 MG TAB PO SCH (19:48)
[2017-06-11] MEDS ORDERED: LEVOFLOXACIN 500 MG TAB PO ONE (00:30)
[2017-06-11 00:40] VITALS: BP 98/52; PULSE 75; RESP 17; TEMP 97.2; O2SAT 99
[2017-06-11] MEDS: ACETAMINOPHEN 500 MG CPLT PO PRN (01:03)
[2017-06-11] MEDS: metroNIDAZOLE 250 MG TAB PO SCH ×2 (01:03→06:06)
[2017-06-11 04:50] VITALS: BP 119/58; PULSE 68; RESP 16; TEMP 97.1; O2SAT 96
[2017-06-11 05:29] LABS: HEMATOCRIT 30.8 % (35.0-46.0); HEMOGLOBIN 10.1 GM/DL (11.6-15.3); MEAN CORPUSCULAR HEMOGLOBIN 27.5 PG (27.0-34.0); MEAN CORPUSCULAR HGB CONC 32.7 % (32.0-36.0); MEAN PLATELET VOLUME 8.2 FL (7.0-11.0); PLATELET COUNT 295 TH/MM3 (150-450); RED BLOOD COUNT 3.67 MIL/MM3 (4.00-5.30); RED CELL DISTRIBUTION WIDTH 16.6 % (11.6-17.2); WHITE BLOOD COUNT 6.1 TH/MM3 (4.0-11.0)
[2017-06-11 05:30] LABS: BICARBONATE 26.1 MEQ/L (21.0-32.0); CALCIUM 8.5 MG/DL (8.5-10.1); CREATININE 0.73 MG/DL (0.50-1.00)
[2017-06-11 07:40] VITALS: BP 157/67; PULSE 78; RESP 19; TEMP 98.4; O2SAT 94
[2017-06-11] MEDS ORDERED: amLODIPine BESYLATE 5 MG TAB PO SCH (09:00)
[2017-06-11] MEDS ORDERED: RAMIPRIL 5 MG CAP PO SCH (09:00)
[2017-06-11] MEDS ORDERED: AMLO5 PO (11:51)
[2017-06-11] MEDS ORDERED: METR1TAB76 PO (11:51)
[2017-06-11] MEDS ORDERED: LIPI10TA PO (11:51)
[2017-06-11] MEDS ORDERED: XANA1TAB2 PO (11:51)
[2017-06-11] MEDS ORDERED: RAMI5CAP PO (11:51)
[2017-06-11] MEDS ORDERED: CARV3.125 PO (11:51)
[2017-06-11] MEDS ORDERED: DRON2.5 PO (11:51)
--- NOTE | 2017-06-11 11:51 | HHI.DS ---
Discharge Summary Admission Date Jun 05, 2017 at 22:23 Discharge Date: Jun 11, 2017 Admitting Diagnosis AMS, elevated troponin, hypoglycemia (1) Acute metabolic encephalopathy due to hypoglycemia ICD Code: G93.41 - Metabolic encephalopathy; E16.2 - Hypoglycemia, unspecified (2) Elevated troponin ICD Code: R74.8 - Abnormal levels of other serum enzymes Status: Acute (3) Hypoglycemia ICD Code: E16.2 - Hypoglycemia, unspecified Status: Acute (4) Status post hip surgery ICD Code: Z98.890 - Other specified postprocedural states Procedures None Brief History - From Admission 71 Y/O female with medical history significant for MR, diabetes, emphysema with hip fracture 2 weeks ago became unresponsive in the Orthopedics office and was found to be hypoglycemic. Mental status improved after after she was given glucose. Workup in the ED revealed elevated troponin. On my evaluation, the patient is awake and alert. She states she has not been eating due to poor appetite. She does take insulin. She did complain of SOB to the ED physician but now states her breathing is at baseline. CBC/BMP: 06/11/17 0400 06/11/17 0400 Significant Findings Laboratory Tests Test 06/08/17 16:53 06/09/17 12:00 06/09/17 12:20 06/10/17 04:32 Alkaline Phosphatase 126 U/L (45-117) Troponin I 0.10 NG/ML (0.02-0.05) Albumin 2.7 GM/DL (3.4-5.0) Lipase 458 U/L (73-393) Hemoglobin 9.6 GM/DL (11.6-15.3) 10.1 GM/DL (11.6-15.3) Hematocrit 29.4 % (35.0-46.0) 30.7 % (35.0-46.0) Red Blood Count 3.61 MIL/MM3 (4.00-5.30) Monocytes (%) (Auto) 11.1 % (0.0-8.0) Eosinophils (%) (Auto) 15.3 % (0.0-4.0) Eosinophils # (Auto) 1.0 TH/MM3 (0-0.4) Random Glucose 71 MG/DL (74-106) Chloride Level 111 MEQ/L (98-107) Estimat Glomerular Filtration Rate 83 ML/MIN (>89) Test 06/11/17 04:00 Red Blood Count 3.67 MIL/MM3 (4.00-5.30) Hemoglobin 10.1 GM/DL (11.6-15.3) Hematocrit 30.8 % (35.0-46.0) Chloride Level 109 MEQ/L (98-107) Estimat Glomerular Filtration Rate 79 ML/MIN (>89) Imaging Last Impressions Abdomen/Pelvis CT 06/10/17 0000 Signed Impressions: Service Date/Time: Saturday, June 10, 2017 15:49 - CONCLUSION: 1. Mild uncomplicated diverticulitis of the distal sigmoid colon. 2. No other acute intra-abdominal abnormalities are demonstrated. 3. There is a subacute appearing hematoma in the soft tissues overlying the left greater trochanter. Garrett Soliz MD Gall Bladder Ultrasound 06/09/17 0000 Signed Impressions: Service Date/Time: Friday, June 09, 2017 07:56 - CONCLUSION: 1. Gallbladder is small and contracted in appearance with borderline wall thickening which may be artifactual. There is no evidence of cholelithiasis. 2. Common bile duct is at the upper limits of normal no evidence of choledocholithiasis. 3. Suboptimal visualization secondary to overlying bowel gas. Inocente Bradley MD Abdomen X-Ray 06/08/17 0000 Signed Impressions: Service Date/Time: Thursday, June 08, 2017 17:33 - CONCLUSION: 1. No acute findings. Roderick Gold MD Chest X-Ray 06/05/17 1747 Signed Impressions: Service Date/Time: Monday, June 05, 2017 18:16 - CONCLUSION: Borderline heart size mild vascular congestion Garrett Joyce MD PE at Discharge GENERAL: Pleasant lady with mental deficits, short stature, complaining of abdominal pain when i came in CARDIOVASCULAR: Regular rate and rhythm without murmurs RESPIRATORY: Breath sounds equal bilaterally. No accessory muscle use. GASTROINTESTINAL: Abdomen soft, tender in the epigastric region EXTREMITIES: No edema. NEUROLOGICAL: Awake, alert, answers questions, follows commands Pt update on day of discharge Patient reports she is feeling much better, looking forward to be discharged. No longer having abdominal pain, ate a full breakfast today. Hospital Course 71-year-old female admitted and treated for the following: Acute metabolic encephalopathy secondary to hypoglycemia: -Hemoglobin A1c is 5.1. Apparently the patient has been taking the Levemir. Her blood glucose were monitored in the hospital and she did not require any insulin. At this time I do not recommend continuing any hypoglycemic agent. She can be followed closely outpatient by PCP. Encephalopathy resolved as blood glucose corrected. Abnormal urinalysis Initially treated with Rocephin, urine cx neg x 48 hrs. d/jesus rocephin Elevated troponin s/p cardiac cath w [id number] myocardial infarction suspected during her syncopal event. She might have been hypotensive and that is the etiology of her troponin elevation. 2. A 60% proximal mid-right coronary artery stenosis Medical management at this time Cardiology recommended aspirin 81 mg qd, start lipitor 10 mg hs, altace 2.5 mg qd, coreg 3.125 mg bid Diverticulitis/poor appetite: Pt w poor appetite Patient was seen by GI. Abdominal CT obtained which revealed mild diverticulitis. The patient was started on antibiotics and her symptoms significantly improved.. H/O gastritis and Duodenal ulcers per GI, continue Protonix. Marinol to help with appetite as patient reports this has been an ongoing issue. s/p left hip surgery Performed at another hospital 2 weeks ago Surgical wounds appear clean dry and intact Moderate pain treated with Tylenol Continue physical therapy. Outpatient follow-up. Pt Condition on Discharge: Good Discharge Disposition: Discharge to SNF Discharge Time: > 30 minutes Discharge Instructions DIET: Follow Instructions for: Heart Healthy Diet Activities you can perform: Regular-No Restrictions Follow up Referrals: Cardiology PCP Follow-up New Medications: Amlodipine (Norvasc) 5 Mg Tab 5 MG PO DAILY, #30 TAB Atorvastatin (Lipitor) 10 Mg Tab 10 MG PO HS, #30 TAB Carvedilol (Coreg) 3.125 Mg Tab 3.125 MG PO Q12HR, #60 TAB Dronabinol (Marinol) 2.5 Mg Cap 2.5 MG PO BID@11,16, #60 CAP Metronidazole (Metronidazole) 500 Mg Tab 500 MG PO TID for Infection, #21 TAB 0 Refills Ramipril (Ramipril) 5 Mg Cap 5 MG PO DAILY, #30 CAP Continued Medications: Acetaminophen (Tylenol) 325 Mg Tab 650 MG PO Q4H PRN for PAIN/TEMP ELEVATION, TAB 0 Refills Alprazolam (Xanax) 1 Mg Tab 1 MG PO HS for Anxiety, #10 TAB 0 Refills (This prescription has been renewed) Brimonidine Opth Drops (Brimonidine Opth Drops) 0.2% Soln 1 DROP EACH EYE BID for Intraocular pressure, #1 BOTTLE 0 Refills Docusate Sodium (Colace) 100 Mg Capsule 100 MG PO Q12HR for Prevent Constipation, #60 CAP 0 Refills Enoxaparin Inj (Lovenox Inj) 40 Mg/0.4 Ml Syr 40 MG SQ DAILY for Blood Clot Prevention, SYRINGE 0 Refills Ferrous Sulfate (Ferrous Sulfate) 325 Mg (65 Mg Iron) Tablet 325 MG PO DAILY for Nutritional Supplement, #30 TAB 0 Refills Fluticasone-Vilanterol Inh (Breo Ellipta Inh) 200-25 Mcg/Act Inh 1 PUFF INH DAILY, #1 INHALER 0 Refills Use daily at the same time. Mirtazapine (Remeron) 45 Mg Tab 45 MG PO HS for Depression Control, #30 TAB 0 Refills Omeprazole (Omeprazole) 40 Mg Cap 40 MG PO BID, #30 CAP 0 Refills Quetiapine (Seroquel) 200 Mg Tab 200 MG PO HS for Depression Control, #30 TAB 0 Refills Sodium Polystyrene Sulfonate Liq (Sodium Polystyrene Sulfonate Liq) 15 Gm/60 Ml Susp 15 GM PO SATURDAY for Excess Potassium, #60 ML 0 Refills Discontinued Medications: Insulin Detemir Inj (Levemir Flextouch Pen Inj) 300 unit/3 ML Pen 20 UNITS SQ DAILY for Blood Sugar Management, PEN 0 Refills Eder Harvey MD Jun 11, 2017 11:51
[2017-06-11 11:57] VITALS: BP 181/76; PULSE 86; RESP 19; TEMP 98.5; O2SAT 98
--- NOTE | 2017-06-11 14:15 | PD.CARD.PN ---
Subjective Subjective Remarks alert in nad, denies chest pain Objective Medications Current Medications Medications (Trade) Dose Ordered Sig/Rosa Route Start Time Stop Time Status Last Admin (Nitrostat Sl) 0.4 mg Q5M PRN SL 06/06/17 00:30 (Tylenol) 500 mg Q4H PRN PO 06/06/17 00:30 06/11/17 01:03 (Morphine Inj) 2 mg Q3H PRN IV PUSH 06/06/17 00:30 06/06/17 09:19 (Duoneb Neb) 1 ampule Q4HR NEB PRN NEB 06/06/17 00:30 (Xanax) 1 mg HS PO 06/06/17 21:00 06/10/17 19:47 (Alphagan 0.2% Opth Soln) 1 drop BID EACH EYE 06/06/17 09:00 06/10/17 19:48 (Ferrous Sulfate) 325 mg DAILY PO 06/06/17 09:00 06/10/17 08:53 (Breo Ellipta 200-25 Inh) 1 puff DAILY INH 06/06/17 09:00 06/10/17 08:50 (SEROquel) 200 mg HS PO 06/06/17 21:00 06/10/17 19:47 (Remeron) 45 mg HS PO 06/06/17 21:00 06/10/17 19:47 (Protonix) 40 mg BID PO 06/06/17 09:00 06/10/17 19:48 (NS Flush) 2 ml UNSCH PRN IV FLUSH 06/06/17 16:15 (NS Flush) 2 ml BID IV FLUSH 06/06/17 21:00 06/10/17 08:51 (Lipitor) 10 mg HS PO 06/08/17 21:00 06/10/17 19:48 (Coreg) 3.125 mg Q12HR PO 06/07/17 21:00 06/10/17 19:47 (Catapres) 0.1 mg Q6H PRN PO 06/07/17 09:00 06/10/17 12:43 (Marinol) 2.5 mg BID@11,16 PO 06/07/17 11:00 06/10/17 17:10 (D50w (Vial) Inj) 50 ml UNSCH PRN IV PUSH 06/07/17 09:15 (Glucagon Inj) 1 mg UNSCH PRN OTHER 06/07/17 09:15 (Tylenol) 500 mg Q6H PRN PO 06/07/17 19:00 06/07/17 21:19 (Lovenox Inj) 40 mg Q24H SQ 06/07/17 20:00 06/10/17 19:47 (Zofran Inj) 4 mg Q6HR PRN IV PUSH 06/08/17 16:30 06/08/17 16:52 (Vasotec Inj) 1.25 mg Q6H PRN IV PUSH 06/08/17 19:15 06/10/17 03:49 (Norvasc) 5 mg DAILY PO 06/11/17 09:00 (Altace) 5 mg DAILY PO 06/11/17 09:00 (Flagyl) 250 mg Q8HR PO 06/11/17 00:30 06/11/17 06:06 Vital Signs / I&O Vital Signs Date Time Temp Pulse Resp B/P (MAP) Pulse Ox O2 Delivery O2 Flow Rate FiO2 06/11/17 11:57 98.5 86 19 181/76 (111) 98 06/11/17 07:40 98.4 78 19 157/67 (97) 94 06/11/17 04:50 97.1 68 16 119/58 (78) 96 06/11/17 00:40 97.2 75 17 98/52 (67) 99 06/10/17 20:55 98.3 69 16 99/52 (68) 97 06/10/17 20:00 71 06/10/17 17:44 98 21 06/10/17 17:01 97.4 69 16 138/80 (99) 98 I/O 06/10/17 06/10/17 06/10/17 06/11/17 06/11/17 06/11/17 07:00 15:00 23:00 07:00 15:00 23:00 Intake Total 940 ml 1000 ml 750 ml 360 ml 240 ml Output Total 1000 ml Balance 940 ml 0 ml 750 ml 360 ml 240 ml Intake Oral 1000 ml 360 ml 240 ml IV Total 940 ml 750 ml Output Urine Total 1000 ml # Voids 1 1 # Bowel Movements 1 0 1 Physical Exam GENERAL: SKIN: Warm and dry. HEAD: Normocephalic. EYES: No scleral icterus. No injection or drainage. NECK: Supple, trachea midline. No JVD or lymphadenopathy. CARDIOVASCULAR: Regular rate and rhythm without murmurs, gallops, or rubs. RESPIRATORY: Breath sounds equal bilaterally. No accessory muscle use. GASTROINTESTINAL: Abdomen soft, non-tender, nondistended. MUSCULOSKELETAL: No cyanosis, or edema. BACK: Nontender without obvious deformity. No CVA tenderness. Laboratory Laboratory Tests Test 06/11/17 04:00 White Blood Count 6.1 TH/MM3 Red Blood Count 3.67 MIL/MM3 Hemoglobin 10.1 GM/DL Hematocrit 30.8 % Mean Corpuscular Volume 84.0 FL Mean Corpuscular Hemoglobin 27.5 PG Mean Corpuscular Hemoglobin Concent 32.7 % Red Cell Distribution Width 16.6 % Platelet Count 295 TH/MM3 Mean Platelet Volume 8.2 FL Blood Urea Nitrogen 13 MG/DL Creatinine 0.73 MG/DL Random Glucose 74 MG/DL Calcium Level 8.5 MG/DL Sodium Level 144 MEQ/L Potassium Level 4.1 MEQ/L Chloride Level 109 MEQ/L Carbon Dioxide Level 26.1 MEQ/L Anion Gap 9 MEQ/L Estimat Glomerular Filtration Rate 79 ML/MIN Assessment and Plan Problem List: (1) CAD (coronary artery disease) ICD Codes: I25.10 - Atherosclerotic heart disease of craig coronary artery without angina pectoris (2) NSTEMI (non-ST elevated myocardial infarction) ICD Codes: I21.4 - Non-ST elevation (NSTEMI) myocardial infarction (3) Altered mental status ICD Codes: R41.82 - Altered mental status, unspecified Status: Acute (4) Elevated troponin ICD Codes: R74.8 - Abnormal levels of other serum enzymes Status: Acute Assessment and Plan 1.) CAD - assymptomatic, change aspirin 81 mg qd, start lipitor 10 mg hs, altace 2.5 mg qd, coreg 3.125 mg bid, f/u bmp wnl 2.) HTN - start norvasc 5 mg qd, Dr Reyes increased altace 5 mg qd 3.) f/u with me in office 06/12 if possible or rogelio ow, d/w patient and nursing staff Problem Qualifiers (1) Altered mental status: Qualified Codes: R41.82 - Altered mental status, unspecified Lan Gomez MD Jun 11, 2017 14:15
--- NOTE | 2017-06-11 14:49 | HHI.GIFU ---
Subjective Remarks Awake, alert answering simple questions Feeling better today and states that she is going home around 4:00 Skin color pale but denies any dizziness Current hemoglobin 10.1 States small brown stool without any obvious bleeding noted (Bette Leon) Objective Vitals I&O Vital Signs Date Time Temp Pulse Resp B/P (MAP) Pulse Ox O2 Delivery O2 Flow Rate FiO2 06/11/17 11:57 98.5 86 19 181/76 (111) 98 06/11/17 07:40 98.4 78 19 157/67 (97) 94 06/11/17 04:50 97.1 68 16 119/58 (78) 96 06/11/17 00:40 97.2 75 17 98/52 (67) 99 06/10/17 20:55 98.3 69 16 99/52 (68) 97 06/10/17 20:00 71 06/10/17 17:44 98 21 06/10/17 17:01 97.4 69 16 138/80 (99) 98 I/O 06/10/17 06/10/17 06/10/17 06/11/17 06/11/17 06/11/17 06:59 14:59 22:59 06:59 14:59 22:59 Intake Total 940 ml 1000 ml 750 ml 360 ml 240 ml Output Total 1000 ml Balance 940 ml 0 ml 750 ml 360 ml 240 ml Intake Oral 1000 ml 360 ml 240 ml IV Total 940 ml 750 ml Output Urine Total 1000 ml # Voids 1 1 1 # Bowel Movements 1 0 1 Laboratory Laboratory Tests Test 06/11/17 04:00 White Blood Count 6.1 Red Blood Count 3.67 Hemoglobin 10.1 Hematocrit 30.8 Mean Corpuscular Volume 84.0 Mean Corpuscular Hemoglobin 27.5 Mean Corpuscular Hemoglobin Concent 32.7 Red Cell Distribution Width 16.6 Platelet Count 295 Mean Platelet Volume 8.2 Blood Urea Nitrogen 13 Creatinine 0.73 Random Glucose 74 Calcium Level 8.5 Sodium Level 144 Potassium Level 4.1 Chloride Level 109 Carbon Dioxide Level 26.1 Anion Gap 9 Estimat Glomerular Filtration Rate 79 Date/Time Source Procedure Growth Status 06/05/17 21:10 Urine Random Urine Urine Culture - Final NO GROWTH IN 48 HOURS. Complete Imaging Last Impressions Abdomen/Pelvis CT 06/10/17 0000 Signed Impressions: Service Date/Time: Saturday, June 10, 2017 15:49 - CONCLUSION: 1. Mild uncomplicated diverticulitis of the distal sigmoid colon. 2. No other acute intra-abdominal abnormalities are demonstrated. 3. There is a subacute appearing hematoma in the soft tissues overlying the left greater trochanter. Garrett Soliz MD Gall Bladder Ultrasound 06/09/17 0000 Signed Impressions: Service Date/Time: Friday, June 09, 2017 07:56 - CONCLUSION: 1. Gallbladder is small and contracted in appearance with borderline wall thickening which may be artifactual. There is no evidence of cholelithiasis. 2. Common bile duct is at the upper limits of normal no evidence of choledocholithiasis. 3. Suboptimal visualization secondary to overlying bowel gas. Inocente Bradley MD Abdomen X-Ray 06/08/17 0000 Signed Impressions: Service Date/Time: Thursday, June 08, 2017 17:33 - CONCLUSION: 1. No acute findings. Roderick Gold MD Chest X-Ray 06/05/17 1747 Signed Impressions: Service Date/Time: Monday, June 05, 2017 18:16 - CONCLUSION: Borderline heart size mild vascular congestion Garrett Joyce MD Physical Exam HEENT: Pupils round and reactive to light; normocephalic; pale color, smiling NECK: Neck is supple CHEST: Chest is clear to auscultation and percussion., No obvious rhonchi or wheezing CARDIAC: Regular rate and rhythm ABDOMEN: Flat, soft, nondistended, nontender to light palpation; bowel sounds are present in all four quadrants. EXTREMITIES: No clubbing, cyanosis, or edema. SKIN: Pale, normal; no rash; no jaundice. SPEECH PATHOLOGIST ASSISTANT: Answers simple questions, (Bette Leon) Assessment and Plan Plan Assessment: - RUQ pain that began yesterday afternoon, described as aching, worse after eating. Associated nausea, denies emesis. KUB ordered by attending reveals no acute abnormalities Pt unsure when last EGD was, seen by our service in the past who noted previous EGD from 2010 --> distal esophageal ring, s/p dilatation with the Savary guidewire dilatation, 16 mm. Mild gastritis, Large ulcer in the duodenum with vessels cauterized and injected. - Dysphagia with solids, history of this Modified Barium swallow 2010 --> Normal barium swallow with speech pathology. Previous dilatation as noted above - Anemia- drop from 06/05 to 06/07- likely multifactorial, no obvious GIB - Slightly elevated lipase, no CT results to assess pancreas- unclear significance - Elevated Alk phos- trending down, unclear significance - Elevated troponin S/P cardiac cath with no PCI three days ago, cardio recommending medical management. Currently on Lovenox daily 06/10/2017, ultrasound of the gallbladder completed on 06/09 shows borderline wall thickening which may be artifact. No evidence of cholelithiasis common bile duct is at the upper limits of normal with no evidence of cholelithiasis visual suboptimal secondary to overlying bowel gas. Since ultrasound negative will follow up with CT. current hemoglobin 10.1, no obvious bleeding 05/11/2017, mild uncomplicated diverticulitis distal sigmoid colon noted per abdominal CT. She currently denies any abdominal pain nausea vomiting or diarrhea. States normal stool brown in color no obvious bleeding. Patient states that she is going home late this afternoon. Will need to remain on Flagyl for her diverticulitis, and follow-up with GI outpatient. Plan: Continue Flagyl Anti-emetics Bowel regimen, monitor color and consistency of stools Supportive care Further recommendations based on findings of above Pt has been seen and examined by myself and Dr. Rascon, note is written on his behalf (Bette Leon) Physician Comments Patient seen and examined Agree with above Continue with current supportive care Monitor lab (Jax Rascon MD) Bette Leon Jun 11, 2017 14:49 Jax Rascon MD Jun 11, 2017 20:35
== END 2017-06-11 18:45 | DRG 280 ==
LOC: NEPC 17:23 → NEDA 22:23 → NEDH 06-06 03:57 → HCIS 06-06 16:13 → N06A 06-07 23:20
PROVIDERS: ADMIT Family Medicine; ATTEND Family Medicine
PROC: 4A023N7 Measurement of Cardiac Sampling and Pressure, Left Heart, Percutaneous Approach (ICD-10-PCS; principal; 2017-06-06)
PROC: B2151ZZ Fluoroscopy of Left Heart using Low Osmolar Contrast (ICD-10-PCS; 2017-06-06)
PROC: B2111ZZ Fluoroscopy of Multiple Coronary Arteries using Low Osmolar Contrast (ICD-10-PCS; 2017-06-06)
PROC: 4A033BC Measurement of Arterial Pressure, Coronary, Percutaneous Approach (ICD-10-PCS; 2017-06-06)
DX: I21.4 Non-ST elevation (NSTEMI) myocardial infarction (principal); G93.41 Metabolic encephalopathy; E11.649 Type 2 diabetes mellitus with hypoglycemia without coma; N39.0 Urinary tract infection, site not specified; K57.92 Diverticulitis of intestine, part unspecified, without perforation or abscess without bleeding; J43.9 Emphysema, unspecified; R13.10 Dysphagia, unspecified; F20.9 Schizophrenia, unspecified; I25.119 Atherosclerotic heart disease of native coronary artery with unspecified angina pectoris; R63.0 Anorexia; F41.8 Other specified anxiety disorders; K21.9 Gastro-esophageal reflux disease without esophagitis; I35.1 Nonrheumatic aortic (valve) insufficiency; D64.9 Anemia, unspecified; R15.9 Full incontinence of feces; I10 Essential (primary) hypertension; R74.8 Abnormal levels of other serum enzymes; F79 Unspecified intellectual disabilities; R40.2430 Glasgow coma scale score 3-8, unspecified time; S72.002D Fracture of unspecified part of neck of left femur, subsequent encounter for closed fracture with routine healing; Z87.11 Personal history of peptic ulcer disease
CPT/HCPCS: 71045; 74018; 74176; 76705; 76937; 80048; 80053; 80061; 80076; 81001; 82550; 82948; 83036; 83690; 83735; 83880; 84484; 85002; 85007; 85014; 85018; 85025; 85027; 85610; 85730; 87086; 93005; 93458; 93571; 94640; 94664; 96374; 99152; 99153; C1769; C1887; C1893; J0153; J0461; J0696; J1644; J1650; J1940; J2250; J2270; J2405; J3010; J7030; Q0167; Q9963; Q9967